=== PATIENT | male | born 1955 | race Caucasian/White ===

== ENCOUNTER 2019-07-26 13:40 | Emergency (ER) | payer BC ==
--- NOTE | 2019-07-26 14:44 | RAD REPORT ---
EXAM DESCRIPTION: RAD - Foot Right 3 View - 07/26/2019 2:36 pm CLINICAL HISTORY: r/o fb Pain and swelling COMPARISON: No comparisons FINDINGS: Soft tissue swelling is seen along the medial aspect of the foot. No fracture or radiopaqu e foreign body seen.
--- NOTE | 2019-07-26 14:46 | ER ---
Nurse's Notes [facility] Name: Baldomero Perez Age: 63 yrs Sex: Male : 1955 Arrival Date: 07/26/2019 Time: 13:45 Bed 11 Private MD: Diagnosis: Puncture wound without foreign body of foot Presentation: 07/26 14:12 Presenting complaint: Patient states: steppe on a nail yesterday evening, right foot. iw Transition of care: patient was not received from another setting of care. Onset of symptoms was July 25, 2019. Risk Assessment: Do you want to hurt yourself or someone else? Patient reports no desire to harm self or others. Initial Sepsis Screen: Does the patient meet any 2 criteria? No. Patient's initial sepsis screen is negative. Does the patient have a suspected source of infection? No. Patient's initial sepsis screen is negative. Care prior to arrival: None. 14:12 Method Of Arrival: Wheelchair iw 14:12 Acuity: MARISOL 4 iw Triage Assessment: 15:00 General: Appears Behavior is calm. iw Historical: - Allergies: 14:16 Codeine; iw - Home Meds: 14:16 Metformin Oral [Active]; Lactulose Oral [Active]; rifaximin oral oral [Active]; [place] iw Thyroid 60 mg Oral tab 60 mg after meals and before bedtime for Hypothyroidism [Active]; - PMHx: 14:16 Hypothyroidism; Diabetes - NIDDM; liver issues; iw - PSHx: 14:16 left shoulder; iw - Immunization history:: Adult Immunizations unknown. - Social history:: Smoking status: Patient/guardian denies using tobacco. - Ebola Screening: : Patient negative for fever greater than or equal to 101.5 degrees Fahrenheit, and additional compatible Ebola Virus Disease symptoms Patient denies exposure to infectious person Patient denies travel to an Ebola-affected area in the 21 days before illness onset No symptoms or risks identified at this time. Screenin:15 Abuse screen: Denies threats or abuse. Denies injuries from another. Nutritional iw screening: No deficits noted. Tuberculosis screening: No symptoms or risk factors identified. Fall Risk None identified. Assessment: 14:50 General: Appears in no apparent distress. Behavior is calm, cooperative. Pain: iw Complains of pain in right foot and heel of right foot. Neuro: Level of Consciousness is awake, alert, obeys commands. Cardiovascular: Patient's skin is warm and dry. Respiratory: Airway Respiratory effort is even, unlabored. Derm: Skin is intact, is healthy with good turgor. Musculoskeletal: Range of motion: intact in all extremities. Vital Signs: 14:16 Pulse 84; Resp 16; Temp 98.2; Pulse Ox 100% ; Weight 78.93 kg; Height 5 ft. 10 in. iw (177.80 cm); Pain 8/10; 14:16 Body Mass Index 24.97 (78.93 kg, 177.80 cm) iw ED Course: 13:45 Patient arrived in ED. rg4 14:08 Mariah Vaughn F[facility]-C is [facility]. kb 14:08 Apollo Lindquist MD is Attending Physician. kb 14:11 Clarita Carolina, RN is Primary Nurse. dm5 14:14 Triage completed. iw 14:17 Primary Nurse role handed off by Clarita Carolina, JADEN iw 14:17 Tiffany Cevallos RN is Primary Nurse. iw 14:17 Arm band placed on. iw 14:36 Foot Right 3 View XRAY In Process Unspecified. EDMS 14:50 Patient has correct armband on for positive identification. iw 15:19 No provider procedures requiring assistance completed. Patient did not have IV access iw during this emergency room visit. Administered Medications: 15:05 Drug: Tetanus-Diphtheria Toxoid Adult 0.5 ml {A P Manager: [employer]. Exp: iw 07/19/2020. Lot #: [id number]. } Route: IM; Site: right deltoid; 15:10 Drug: KeFLEX 500 mg Route: PO; iw Outcome: 14:45 Discharge ordered by . kb 15:19 Discharged to home ambulatory. iw 15:19 Condition: good 15:19 Discharge instructions given to patient, Instructed on discharge instructions, follow up and referral plans. Demonstrated understanding of instructions, follow-up care, medications, Prescriptions given X 1. 15:20 Patient left the ED. iw Signatures: Dispatcher [employer] EDMS Mariah Vaughn FNP-C FNP-Clarita Campuzano RN RN dm5 Tiffany Cevallos RN RN Lubna Rosario rg4
--- NOTE | 2019-07-26 14:47 | EDPHYS ---
Physician Documentation [facility] Name: Baldomero Perez Age: 63 yrs Sex: Male : 1955 Arrival Date: 07/26/2019 Time: 13:45 Bed 11 Private MD: ED Physician Apollo Lindquist HPI: 07/26 14:45 This 63 yrs old Male presents to ER via Wheelchair with complaints of kb Puncture Wound To Foot. 14:42 The patient presents with a puncture wound, from a nail. The complaints affect the kb right foot. Context: The problem was sustained outdoors, resulted from the patient stepping on a nail, the patient can fully bear weight, the patient is able to ambulate. Onset: The symptoms/episode began/occurred yesterday. Modifying factors: The symptoms are alleviated by nothing, the symptoms are aggravated by nothing. Associated signs and symptoms: The patient has no apparent associated signs or symptoms. Severity of symptoms: At their worst the symptoms were mild, in the emergency department the symptoms are unchanged. The patient has not experienced similar symptoms in the past. The patient has not recently seen a physician. Pt stepped on nail yesterday. Pt is diabetic and also needs tetanus shot. Historical: - Allergies: 14:16 Codeine; iw - Home Meds: 14:16 Metformin Oral [Active]; Lactulose Oral [Active]; rifaximin oral oral [Active]; [place] iw Thyroid 60 mg Oral tab 60 mg after meals and before bedtime for Hypothyroidism [Active]; - PMHx: 14:16 Hypothyroidism; Diabetes - NIDDM; liver issues; iw - PSHx: 14:16 left shoulder; iw - Immunization history:: Adult Immunizations unknown. - Social history:: Smoking status: Patient/guardian denies using tobacco. - Ebola Screening: : Patient negative for fever greater than or equal to 101.5 degrees Fahrenheit, and additional compatible Ebola Virus Disease symptoms Patient denies exposure to infectious person Patient denies travel to an Ebola-affected area in the 21 days before illness onset No symptoms or risks identified at this time. ROS: 14:42 MS/extremity: Positive for kb 14:42 Constitutional: Negative for fever, chills, and weight loss, Neck: Negative for injury, pain, and swelling, Cardiovascular: Negative for chest pain, palpitations, and edema, Respiratory: Negative for shortness of breath, cough, wheezing, and pleuritic chest pain, Abdomen/GI: Negative for abdominal pain, nausea, vomiting, diarrhea, and constipation, Back: Negative for injury and pain, MS/Extremity: Negative for injury and deformity, Neuro: Negative for headache, weakness, numbness, tingling, and seizure. 14:42 Skin: Positive for puncture, of the heel of right foot. Exam: 14:41 Constitutional: This is a well developed, well nourished patient who is awake, alert, kb and in no acute distress. Head/Face: Normocephalic, atraumatic. Chest/axilla: Normal chest wall appearance and motion. Nontender with no deformity. No lesions are appreciated. Cardiovascular: Regular rate and rhythm with a normal S1 and S2. No gallops, murmurs, or rubs. Normal PMI, no JVD. No pulse deficits. Respiratory: Lungs have equal breath sounds bilaterally, clear to auscultation and percussion. No rales, rhonchi or wheezes noted. No increased work of breathing, no retractions or nasal flaring. Abdomen/GI: Soft, non-tender, with normal bowel sounds. No distension or tympany. No guarding or rebound. No evidence of tenderness throughout. MS/ Extremity: Pulses equal, no cyanosis. Neurovascular intact. Full, normal range of motion. Neuro: Awake and alert, GCS 15, oriented to person, place, time, and situation. Cranial nerves II-XII grossly intact. Motor strength 5/5 in all extremities. Sensory grossly intact. Cerebellar exam normal. Normal gait. 14:41 Skin: injury, puncture(s), that are superficial, of the heel of right foot. Vital Signs: 14:16 Pulse 84; Resp 16; Temp 98.2; Pulse Ox 100% ; Weight 78.93 kg; Height 5 ft. 10 in. iw (177.80 cm); Pain 8/10; 14:16 Body Mass Index 24.97 (78.93 kg, 177.80 cm) iw MDM: 14:08 Patient medically screened. kb 14:41 Data reviewed: vital signs, nurses notes. Data interpreted: Pulse oximetry: on room air kb is 100 %. Interpretation: normal. 14:43 Counseling: I had a detailed discussion with the patient and/or guardian regarding: the kb historical points, exam findings, and any diagnostic results supporting the discharge/admit diagnosis, radiology results, the need for outpatient follow up, a family practitioner, to return to the emergency department if symptoms worsen or persist or if there are any questions or concerns that arise at home. 07/26 14:10 Order name: Foot Right 3 View XRAY; Complete Time: 14:50 kb Administered Medications: 15:05 Drug: Tetanus-Diphtheria Toxoid Adult 0.5 ml {Chemical Unit Operator: [employer]. Exp: iw 07/19/2020. Lot #: [id number]. } Route: IM; Site: right deltoid; 15:10 Drug: KeFLEX 500 mg Route: PO; iw Disposition: 19:05 Co-signature as Attending Physician, Apollo Lindquist MD. rn Disposition: 07/26/19 14:45 Discharged to Home. Impression: Puncture wound without foreign body of foot. - Condition is Stable. - Discharge Instructions: Puncture Wound, [id number]. - Prescriptions for Keflex 500 mg Oral Capsule - take 1 capsule by ORAL route every 8 hours for 10 days; 30 capsule. - Medication Reconciliation Form, Thank You Letter, Antibiotic Education, Prescription Opioid Use form. - Follow up: Emergency Department; When: As needed; Reason: Worsening of condition. Follow up: Private Physician; When: 2 - 3 days; Reason: Recheck today's complaints, Continuance of care, Re-evaluation by your physician. Signatures: Dispatcher [employer] [facility] Mariah Vaughn, CASTING MOLDER-C CASTING MOLDER-Tiffany Medina RN RN iw Nieto, Roman, MD MD internal control specialist: (The following items were deleted from the chart) 15:20 14:45 07/26/2019 14:45 Discharged to Home. Impression: Puncture wound without foreign iw body of foot. Condition is Stable. Discharge Instructions: Puncture Wound, [id number]. Prescriptions for Keflex 500 mg Oral Capsule - take 1 capsule by ORAL route every 8 hours for 10 days; 30 capsule. and Forms are Medication Reconciliation Form, Thank You Letter, Antibiotic Education, Prescription Opioid Use. Follow up: Emergency Department; When: As needed; Reason: Worsening of condition. Follow up: Private Physician; When: 2 - 3 days; Reason: Recheck today's complaints, Continuance of care, Re-evaluation by your physician. kb
[2019-07-26] MEDS ORDERED: CEPHALEXIN 250 MG CAP ONE (15:07)
[2019-07-26] MEDS ORDERED: TETANUS & DIPHTHERIA TOX,ADULT 0.5 ML VIAL ONE (15:10)
[2019-07-26 16:15] VITALS: TEMP 98.2; O2SAT 100
== END 2019-07-26 15:20 | disposition home or self-care (01) ==
LOC: ER 13:40
DX: S91.331A Puncture wound without foreign body, right foot, initial encounter (principal); W45.0XXA Nail entering through skin, initial encounter; Y93.01 Activity, walking, marching and hiking; Y92.89 Other specified places as the place of occurrence of the external cause; Z23 Encounter for immunization; Z88.5 Allergy status to narcotic agent; E03.9 Hypothyroidism, unspecified; E11.9 Type 2 diabetes mellitus without complications
CPT/HCPCS: 90471; 90714; 99283

== ENCOUNTER 2021-10-25 21:22 | Observation (INO) | payer BC ==
[2021-10-25] MEDS ORDERED: NA CHLORIDE 0.9% 2,000 ML ONE (22:02)
[2021-10-25] MEDS ORDERED: IBUPROFEN 200 MG TAB PO ONE (22:02)
[2021-10-25 22:21] LABS: Absolute Lymphocytes (CBC) 0.3 K/uL (0.7-4.9); Hematocrit 40.4 % (39.6-49.0); Lymphocytes % 17.6 % (15.3-44.8); MPV 9.4 fL (7.6-11.3); RBC Red Blood Cell Count 3.96 M/uL (4.33-5.43)
[2021-10-25 22:22] LABS: Protime INR 1.27
[2021-10-25 22:34] LABS: ALT/SGPT 69 U/L (12-78); AST/SGOT 72 U/L (15-37); Albumin 3.3 g/dL (3.4-5.0); Alkaline Phosphatase 100 U/L (45-117); BUN Blood Urea Nitrogen 10 mg/dL (7-18); Bicarbonate 24 mmol/L (21-32); Bilirubin Direct 0.6 mg/dL (0-0.2); Bilirubin Total 1.8 mg/dL (0.2-1.0); Glucose Level 231 mg/dL (74-106); Magnesium 1.8 mg/dL (1.8-2.4); NT PRO-BNP 45 pg/mL (<125); Protein, Total 6.3 g/dL (6.4-8.2); Sodium Level 138 mmol/L (136-145); Troponin High Sensitivity 15.7 pg/mL (<58.9)
[2021-10-25 22:40] LABS: Urine Blood Negative (Negative); Urine Glucose 3+ (Negative); Urine Protein 1+ (Negative); Urine Specific Gravity 1.025 (1.005-1.030); Urine pH 6.5 (5.0-7.0)
[2021-10-25] MEDS ORDERED: CEFEPIME 1 GM/VIAL ONE (22:48)
[2021-10-25] MEDS ORDERED: NA CHLORIDE 0.9% 100 ML IV ONE (22:48)
[2021-10-25 23:33] LABS: SARS-COV-2 RT PCR NEGATIVE (NEGATIVE)
[2021-10-25 23:46] LABS: Urine Mucus 1+ /HPF (NONE SEEN)
[2021-10-25 23:47] LABS: Urine Bacteria <20 /HPF (NONE SEEN); Urine RBC <5 /HPF (NONE SEEN); Urine Urothelial Cells <5 /HPF (NONE SEEN)
[2021-10-26] MEDS ORDERED: OSELTAMIVIR 75 MG CAP ONE (00:16)
--- NOTE | 2021-10-26 00:17 | ER ---
Nurse's Notes [facility] Name: Baldomero Perez Age: 66 yrs Sex: Male : 1955 Arrival Date: 10/25/2021 Time: : Bed 20 Private MD: Diagnosis: Fever, unspecified;Influenza due to identified novel influenza A virus;[place] Presentation: 10/25 21:38 Chief complaint: Patient states: "Yesterday, I started I had a headache, I was ab2 coughing, I thought it was my allergies. It has been persistent and tonight I developed a fever." Pt c/o body aches, cough and fever. Chief complaint:. Coronavirus screen: Vaccine status: Patient reports receiving the 2nd dose of the covid vaccine. Client denies travel out of the [place] in the last 14 days. chills, congestion, cough unrelated to allergies, fatigue, fever, muscle pain, Client presents with at least one sign or symptom that may indicate coronavirus-19. Standard/surgical mask placed on the client. Provider contacted for isolation considerations. Ebola Screen: Patient negative for fever greater than or equal to 101.5 degrees Fahrenheit, and additional compatible Ebola Virus Disease symptoms Patient denies exposure to infectious person. Patient denies travel to an Ebola-affected area in the 21 days before illness onset. No symptoms or risks identified at this time. Initial Sepsis Screen: Does the patient meet any 2 criteria? Temp <36.0*C (96.8*F)) or > 38.3*C (100.9*F). HR > 90 bpm. Yes Does the patient have a suspected source of infection? No. Patient's initial sepsis screen is negative. Risk Assessment: Do you want to hurt yourself or someone else? Patient reports no desire to harm self or others. Onset of symptoms is unknown. 21:38 Method Of Arrival: Ambulatory ab2 21:38 Acuity: MARISOL 3 ab2 Triage Assessment: 21:43 Headache History: Denies prior headaches. General: Appears in no apparent distress. ab2 uncomfortable, Behavior is calm, cooperative, appropriate for age. Pain: Complains of pain in generalized body aches Pain currently is 6 out of 10 on a pain scale. Quality of pain is described as aching, Pain began 1 day ago. Pain: Also complains of no other associated symptoms. Neuro: Level of Consciousness is awake, alert, obeys commands, Oriented to person, place, time, situation, Appropriate for age Reports headache. Respiratory: Reports cough that is Airway is patent Respiratory effort is even, unlabored, Respiratory pattern is regular, symmetrical. Historical: - Allergies: 21:41 No Known Allergies; ab2 - Home Meds: 22:18 [place] Thyroid 60 mg Oral tab 60 mg after meals and before bedtime for Hypothyroidism kd3 [Active]; Metformin Oral [Active]; rifaximin Oral [Active]; - PMHx: 21:41 Diabetes - NIDDM; Hypothyroidism; Liver Issues; ab2 - Immunization history:: Adult Immunizations up to date. - Social history:: Smoking status: Patient denies any tobacco usage or history of. Screenin:18 Abuse screen: Denies threats or abuse. Denies injuries from another. Nutritional kd3 screening: No deficits noted. Tuberculosis screening: No symptoms or risk factors identified. Fall Risk IV access (20 points). Assessment: 22:17 General: Appears in no apparent distress. ill, Behavior is calm, cooperative, kd3 appropriate for age. Pain: Denies pain. Neuro: Level of Consciousness is awake, alert, Oriented to person, place, time, situation. Cardiovascular: Patient's skin is warm and dry. Vital Signs: 21:38 BP 140 / 76; Pulse 105; Resp 20; Temp 101.6; Pulse Ox 95% on R/A; Weight 78.47 kg; ab2 Height 5 ft. 11 in. (180.34 cm); Pain 6/10; 23:03 BP 117 / 71; Pulse 85; Resp 16; Temp 99.4(O); Pulse Ox 95% ; kd3 21:38 Body Mass Index 24.13 (78.47 kg, 180.34 cm) ab2 ED Course: 21:27 Patient arrived in ED. ja2 21:41 Triage completed. ab2 21:44 Arm band placed on left wrist. ab2 21:45 Edwardo Renteria PA is PHCP. cp 21:45 Juan Carlos Burt MD is Attending Physician. cp 22:06 Monica Stallings, JADEN is Primary Nurse. kd3 22:07 Blood Culture Adult (2) Sent. kd3 22:07 Procalcitonin Sent. kd3 22:07 Lactate Sent. kd3 22:19 Bed in low position. Call light in reach. Side rails up X 1. kd3 22:22 XRAY Chest (1 view) In Process Unspecified. EDMS 23:08 CT Chest, Abdomen, Pelvis - W/Contrast In Process Unspecified. EDMS 10/26 00:16 Anitra Damon PA is Hospitalizing Provider. cp 00:30 Felipe Vasquez is Hospitalizing Provider. cp 01:32 No provider procedures requiring assistance completed. Patient admitted, IV remains in kd3 place. Administered Medications: 10/25 22:01 Drug: NS 0.9% (30 ml/kg) 30 ml/kg Route: IV; Rate: bolus; Site: left antecubital; ab2 22:02 Drug: Ibuprofen 800 mg Route: PO; ab2 22:19 Drug: NS 0.9% (30 ml/kg) 30 ml/kg Route: IV; Rate: bolus; Site: left antecubital; kd3 22:59 Drug: Cefepime 2 grams Route: IVPB; Rate: 200 ml/hr; Infused Over: 30 mins; Site: left kd3 antecubital; 10/26 00:15 Drug: Tamiflu (oseltamivir) 75 mg Route: PO; kd3 Outcome: 00:16 Decision to Hospitalize by Provider. cp 01:32 Admitted to Med/surg accompanied by viktor ibarra . kd3 01:33 Condition: stable kd3 02:06 Patient left the ED. kd3 Signatures: Dispatcher [employer] EDOK Edwardo Renteria PA PA cp Alexander, Jessica ja2 Doucette, Kyli, RN RN kd3 Nikolas Knowles2 Corrections: (The following items were deleted from the chart) 10/25 21:43 21:41 Allergies: Codeine; ab2 ab2
--- NOTE | 2021-10-26 00:18 | EDPHYS ---
Physician Documentation [facility] Name: Baldomero Perez Age: 66 yrs Sex: Male : 1955 Arrival Date: 10/25/2021 Time: 21:27 Bed 20 Private MD: ED Physician Juan Carlos Burt HPI: 10/25 22:00 This 66 yrs old Male presents to ER via Ambulatory with complaints of Fever, Headache, cp ACHES ALL OVER. 22:00 The patient reports fever, with an emergency department temperature of 101.6 degrees cp Fahrenheit. Onset: The symptoms/episode began/occurred today. Associated signs and symptoms: Pertinent positives: cough, headache, body aches, Pertinent negatives: abdominal pain, altered mental status, chest pain, diarrhea, vomiting. Severity of symptoms: in the emergency department the symptoms are unchanged despite home interventions. Historical: - Allergies: 21:41 No Known Allergies; ab2 - Home Meds: 22:18 [place] Thyroid 60 mg Oral tab 60 mg after meals and before bedtime for Hypothyroidism kd3 [Active]; Metformin Oral [Active]; rifaximin Oral [Active]; - PMHx: 21:41 Diabetes - NIDDM; Hypothyroidism; Liver Issues; ab2 - Immunization history:: Adult Immunizations up to date. - Social history:: Smoking status: Patient denies any tobacco usage or history of. ROS: 22:05 Constitutional: Positive for body aches, fever. cp 22:05 Eyes: Negative for injury, pain, redness, and discharge. cp 22:05 ENT: Negative for drainage from ear(s), ear pain, sore throat, difficulty swallowing, difficulty handling secretions. 22:05 Cardiovascular: Negative for chest pain, edema, palpitations. 22:05 Respiratory: Positive for cough, with no reported sputum, Negative for shortness of breath, wheezing. 22:05 Abdomen/GI: Negative for abdominal pain, vomiting, diarrhea, constipation. 22:05 : Negative for urinary symptoms, flank pain. 22:05 Skin: Negative for rash. 22:05 Neuro: Positive for headache, Negative for altered mental status, numbness, weakness. 22:05 All other systems are negative. Exam: 22:10 Constitutional: The patient appears in no acute distress, alert, awake, cp non-diaphoretic, non-toxic, well developed, well nourished, febrile. 22:10 Head/Face: Normocephalic, atraumatic. cp 22:10 Eyes: Periorbital structures: appear normal, Pupils: equal, round, and reactive to light and accomodation, Extraocular movements: intact throughout, Conjunctiva: normal, no exudate, no injection, Sclera: no appreciated abnormality, Lids and lashes: appear normal, bilaterally. 22:10 ENT: External ear(s): are unremarkable, Ear canal(s): are normal, clear, TM's: dullness, bilaterally, Nose: is normal, Mouth: Lips: dry, Oral mucosa: moist, Posterior pharynx: Airway: no evidence of obstruction, patent, Tonsils: are normal in appearance, swelling, is not appreciated, erythema, that is mild, exudate, is not appreciated. 22:10 Neck: ROM/movement: is normal, is supple, without pain, no range of motions limitations, no meningismus. 22:10 Chest/axilla: Inspection: normal, Palpation: is normal, no crepitus, no tenderness. 22:10 Cardiovascular: Rate: tachycardic, Rhythm: regular, Edema: is not appreciated, JVD: is not appreciated. 22:10 Respiratory: the patient does not display signs of respiratory distress, Respirations: normal, no use of accessory muscles, no retractions, labored breathing, is not present, Breath sounds: bronchial sounds, that are mild, are heard diffusely, decreased breath sounds, are not appreciated, stridor, is not appreciated, wheezing: is not appreciated. 22:10 Abdomen/GI: Inspection: abdomen appears normal, Bowel sounds: active, all quadrants, Palpation: abdomen is soft and non-tender, in all quadrants. 22:10 Back: pain, is absent, ROM is normal. 22:10 Skin: cellulitis, is not appreciated, no rash present. 22:10 Neuro: Orientation: to person, place \T\ time. Mentation: is normal, Motor: moves all fours, strength is normal, Sensation: is normal. 22:15 ECG was reviewed by the Attending Physician. cp Vital Signs: 21:38 BP 140 / 76; Pulse 105; Resp 20; Temp 101.6; Pulse Ox 95% on R/A; Weight 78.47 kg; ab2 Height 5 ft. 11 in. (180.34 cm); Pain 6/10; 23:03 BP 117 / 71; Pulse 85; Resp 16; Temp 99.4(O); Pulse Ox 95% ; kd3 21:38 Body Mass Index 24.13 (78.47 kg, 180.34 cm) ab2 MDM: 21:56 Patient medically screened. cp 22:00 Differential diagnosis: viral Infection, bacterial infection, bronchitis, pneumonia cp gastroenteritis, meningitis, influenza, UTI, sepsis. 23:45 Post IV fluid administration reassessment for Sepsis: Client prescribed 30 mL/kg IVF. cp Focused Assessment performed: October 25, 2021 at 23:45 Heart: Regular rate/rhythm noted. Lungs: mild bronchial sounds noted throughout Skin examination performed. Skin noted to have normal turgor. Current vital signs reviewed: Yes. Neuro: no change Cardio: Cardiovascular examination improved from previous exam. Heart rate and blood pressure have improved. Respiratory: no signs of respiratory distress. 23:45 Data reviewed: vital signs, nurses notes, lab test result(s), EKG, radiologic studies, cp plain films. 10/26 00:10 Physician consultation: Anitra CRANE was called at 00:05, was contacted at 00:05, cp regarding admission, to the telemetry unit. patient's condition, and will see patient in ED, shortly. 10/25 21:56 Order name: Basic Metabolic Panel; Complete Time: 22:36 cp 10/25 22:36 Interpretation: Normal except: GLUC 231. cp 10/25 21:56 Order name: CBC with Diff; Complete Time: 00:45 cp 10/25 22:46 Interpretation: Normal except: WBC 1.7; RBC 3.96; MCV 102.1; MCH 35.7; PLT 74; MN% cp 22.1; NEUT A 1.0; LYMA 0.3. 10/25 21:56 Order name: LFT's; Complete Time: 22:36 cp 10/25 23:40 Interpretation: Normal except: AST 72; BILIT 1.8; BILID 0.6; TP 6.3; ALB 3.3. cp 10/25 21:56 Order name: Magnesium; Complete Time: 22:36 cp 10/25 21:56 Order name: NT PRO-BNP; Complete Time: 22:36 cp 10/25 21:56 Order name: PT-INR; Complete Time: 22:36 10/25 21:56 Order name: Troponin HS; Complete Time: 22:36 10/25 21:56 Order name: Procalcitonin; Complete Time: 23:39 10/25 21:56 Order name: Lactate; Complete Time: 22:36 10/25 21:56 Order name: Blood Culture Adult (2) 10/25 21:56 Order name: Urine Microscopic Only; Complete Time: 23:39 10/25 23:39 Interpretation: INFLUENZA A POSITIVE; Reviewed. 10/25 21:58 Order name: Urine Microscopic Only; Complete Time: 00:02 EDMS 10/25 22:39 Order name: Manual Differential; Complete Time: 00:45 EDMS 10/26 00:45 Interpretation: Abnormal: BANDS [F] 6. 10/25 21:56 Order name: XRAY Chest (1 view) 10/25 21:56 Order name: EKG; Complete Time: 21:57 10/25 21:56 Order name: Cardiac monitoring; Complete Time: 22:12 10/25 21:56 Order name: EKG - Nurse/Tech; Complete Time: 22:12 10/25 21:56 Order name: IV Saline Lock; Complete Time: 22:07 10/25 21:56 Order name: Labs collected and sent; Complete Time: 22:07 10/25 21:56 Order name: O2 Per Protocol; Complete Time: 22:12 10/25 21:56 Order name: O2 Sat Monitoring; Complete Time: 22:12 10/25 21:56 Order name: Urine Dipstick-Ancillary (obtain specimen); Complete Time: 22:43 10/25 22:38 Order name: CT Chest, Abdomen, Pelvis - W/Contrast 10/25 22:40 Order name: Urine Dipstick-Ancillary; Complete Time: 22:46 EDIN 10/25 22:47 Interpretation: Normal except: UGLUC 3+; UKET Trace; UPROT 1+. cp EC/27 22:15 Rate is 93 beats/min. Rhythm is regular. UT interval is normal. QRS interval is normal. cp QT interval is normal. T waves are Inverted in lead aVR. Interpreted by me. Reviewed by me. Administered Medications: 22:01 Drug: NS 0.9% (30 ml/kg) 30 ml/kg Route: IV; Rate: bolus; Site: left antecubital; ab2 22:02 Drug: Ibuprofen 800 mg Route: PO; ab2 22:19 Drug: NS 0.9% (30 ml/kg) 30 ml/kg Route: IV; Rate: bolus; Site: left antecubital; kd3 22:59 Drug: Cefepime 2 grams Route: IVPB; Rate: 200 ml/hr; Infused Over: 30 mins; Site: left kd3 antecubital; 10/26 00:15 Drug: Tamiflu (oseltamivir) 75 mg Route: PO; kd3 Disposition: 04:45 Co-signature as Attending Physician, Juan Carlos Burt MD. [facility] Disposition Summary: 10/26/21 00:16 Hospitalization Ordered Hospitalization Status: Inpatient Admission cp Location: Telemetry/[facility] (Inpatient) cp Condition: Stable cp Problem: new cp Symptoms: have improved cp Bed/Room Type: Standard cp Provider: Feilpe Vasquez(10/26/21 00:30) cp Room Assignment: [facility](10/26/21 00:44) Diagnosis - Fever, unspecified cp - Influenza due to identified novel influenza A virus cp - Bandemia cp Forms: - Medication Reconciliation Form cp - SBAR form cp Signatures: Dispatcher [employer] EDRegina Paz RN RN Edwardo Renteria PA PA cp Juan Carlos Burt MD MD [facility] Monica Stallings RN RN kd3 Nikolas Knowels ab2 Corrections: (The following items were deleted from the chart) 10/25 21:43 21:41 Allergies: Codeine; ab2 ab2 22:42 22:38 Beth ordered. cp kd3 10/26 00:30 00:16 Anitra Damon cp cp 00:34 00:29 COVID-19/FLU A+B+MOL.LAB.BRZ ordered. EDMS EDMS 00:44 00:16 cp mw
[2021-10-26 00:26] LABS: Blood Morphology Comment NOT SEEN (NOT SEEN); Platelet Estimate DECR
--- NOTE | 2021-10-26 00:40 | P.HP ---
Certification for Inpatient Patient admitted to: Observation With expected LOS: <2 Midnights Patient will require the following post-hospital care: None Practitioner: I am a practitioner with admitting privileges, knowledge of patient current condition, hospital course, and medical plan of care. Services: Services provided to patient in accordance with Admission requirements found in Title 42 Section 412.3 of the Code of Federal Regulations Patient History Date of Service: 10/26/21 Reason for admission: Influenza History of Present Illness: Patient is a 66-year-old male with cirrhosis status post TIPS procedure, hypothyroidism, type 2 diabetes [id number] who presented to the ED with a 2-day history of body aches, fever, chills, cough, headache. He initially flagged sepsis protocol with BP 140/76, heart rate 105, temp 101.6 Fahrenheit, 95% O2 saturation. Labs significant for white blood cell 1.7, PT 14, 6 band neutrophils, influenza A positive. CT chest abdomen pelvis negative. In the ED he was given sepsis fluids, 800 mg of ibuprofen, cefepime, tamiflu. Upon my assessment, patient reports he is feeling much better. His vital signs have stabilized. Will admit patient for observation. Allergies codeine Adverse Reaction (Verified 11/11/15 11:56) Nausea/Vomiting hydrocodone Adverse Reaction (Verified 11/11/15 17:20) Nausea/Vomiting octreotide [From Sandostatin] Adverse Reaction (Verified 11/12/15 19:52) Hives/Rash ondansetron [From Zofran (as hydrochloride)] Adverse Reaction (Verified 11/12/15 19:52) Hives/Rash Home medications list reviewed: Yes Home Medications: Thyroid,Pork [[place] Thyroid] 60 mg PO DAILY 11/11/15 Zolpidem Tartrate [Ambien] 5 mg PO PRN 11/11/15 - Past Medical/Surgical History Diabetic: Yes -: Hep C -: Thyroid Disorder -: Type 2 Diabetes- Non Insulin Dependent -: Cirrhosis -: TIPS Psychosocial/ Personal History: Patient lives at home with his . - Family History Father -: Heart disease, Diabetes Mother -: Heart disease, Hypertension - Social History Smoking Status: Never smoker Alcohol use: No CD- Drugs: No Caffeine use: Yes Place of Residence: Home Review of Systems General: Fever, Chills, Weakness, Malaise, As per HPI Respiratory: Cough, Shortness of Breath Physical Examination - Physical Exam General: Alert, In no apparent distress, Oriented x3 HEENT: Atraumatic, PERRLA, Mucous membr. moist/pink, EOMI, Sclerae nonicteric Neck: Supple, 2+ carotid pulse no bruit, No LAD, Without JVD or thyroid abnormality Respiratory: Clear to auscultation bilaterally, Normal air movement Cardiovascular: Regular rate/rhythm, Normal S1 S2 Gastrointestinal: Normal bowel sounds, No tenderness Musculoskeletal: No tenderness Integumentary: No rashes Neurological: Normal speech, Normal strength at 5/5 x4 extr, Normal tone, Normal affect - Studies Laboratory Data (last 24 hrs) 10/25/21 22:02: PT 14.0 H, INR 1.27 10/25/21 22:02: WBC 1.7 L*, Hgb 14.1, Hct 40.4, Plt Count 74 L 10/25/21 22:02: Sodium 138, Potassium 4.0, BUN 10, Creatinine 0.70, Glucose 231 H, Magnesium 1.8, Total Bilirubin 1.8 H, AST 72 H, ALT 69, Alkaline Phosphatase 100 Assessment and Plan - Problems (Diagnosis) (1) Influenza Current Visit: Yes Status: Acute (2) Fever Current Visit: Yes Status: Acute Qualifiers: Fever type: due to other condition Qualified Code(s): R50.81 - Fever presenting with conditions classified elsewhere (3) Neutropenia Current Visit: Yes Status: Acute Qualifiers: Neutropenia type: due to infection Qualified Code(s): D70.3 - Neutropenia due to infection (4) Hepatic cirrhosis due to chronic hepatitis C infection Current Visit: No Status: Chronic (5) Hypothyroidism Current Visit: Yes Status: Chronic Qualifiers: Hypothyroidism type: acquired Qualified Code(s): E03.9 - Hypothyroidism, unspecified (6) Non-insulin dependent type 2 diabetes mellitus Current Visit: Yes Status: Chronic - Plan -Patient is positive for influenza A. his white blood cell count is decreased at 1.7. Will trend. -Sepsis protocol was initially called. Lactic acid and pro-Aditya within normal limits. Vital signs stabilized. will continue to monitor -Sepsis fluids given in the ED, will continue IV hydration at 100 cc an hour. -Patient reported mild shortness of breath and cough. Breathing treatments and Tessalon Perles ordered as needed -Patient has a history of liver disease. Ibuprofen as needed pain/fever -Patient received cefepime in the ED. Will hold off on any further antibiotics. Continue Tamiflu -Continue home medications DVT PPx: Lovenox Code: Full Discharge Plan: Home Plan to discharge in: 24 Hours - Advance Directives Does patient have a Living Will: No Does patient have a Durable POA for Healthcare: No - Code Status/Comfort Care Code Status Assessed: Yes (Full) Critical Care: No Time Spent Managing Pts Care (In Minutes): 70
[2021-10-26] MEDS ORDERED: PROMETHAZINE INJ 25 MG/ML AMP IV PRN (01:44)
[2021-10-26] MEDS ORDERED: ALBUTEROL 2.5 MG/3 ML NEB SOL NEB PRN ×2 (01:44→12:00)
[2021-10-26] MEDS ORDERED: ZOLPIDEM TARTRATE 5 MG TABLET PO PRN (01:44)
[2021-10-26] MEDS ORDERED: BENZONATATE 100 MG CAP PO PRN (01:44)
[2021-10-26] MEDS ORDERED: IBUPROFEN 400 MG TAB PO PRN (01:44)
[2021-10-26 02:22] VITALS: BMI 22.7
[2021-10-26] MEDS: NA CHLORIDE 0.9% 1,000 ML IV SCH ×3 (02:42→16:53)
[2021-10-26 04:28] LABS: Absolute Lymphocytes (CBC) 0.5 K/uL (0.7-4.9); Hematocrit 37.2 % (39.6-49.0); Lymphocytes % 35.7 % (15.3-44.8); MPV 9.7 fL (7.6-11.3); RBC Red Blood Cell Count 3.56 M/uL (4.33-5.43)
[2021-10-26 04:34] LABS: ALT/SGPT 64 U/L (12-78); AST/SGOT 59 U/L (15-37); Albumin 2.9 g/dL (3.4-5.0); Alkaline Phosphatase 88 U/L (45-117); BUN Blood Urea Nitrogen 12 mg/dL (7-18); Bicarbonate 22 mmol/L (21-32); Bilirubin Total 1.5 mg/dL (0.2-1.0); Glucose Level 311 mg/dL (74-106); Magnesium 1.8 mg/dL (1.8-2.4); Phosphorus 3.9 mg/dL (2.5-4.9); Potassium 3.8 mmol/L (3.5-5.1); Protein, Total 5.5 g/dL (6.4-8.2); Sodium Level 138 mmol/L (136-145); Thyroid Stimulating Hormone 0.064 uIU/mL (0.360-3.740)
[2021-10-26] MEDS ORDERED: PNEUMOCOCCAL VACCINE 0.5 ML IMVAC ONE (08:00)
[2021-10-26] MEDS: INSULIN -REGULAR HUMAN 50 UNIT/0.5 ML ML SQ SCH ×4 (08:58→21:00)
[2021-10-26] MEDS: OSELTAMIVIR 75 MG CAP PO SCH ×2 (08:58→21:00)
[2021-10-26] MEDS ORDERED: ENOXAPARIN 40 MG/0.4 ML SQ SCH (09:00)
--- NOTE | 2021-10-26 12:54 | RAD REPORT ---
EXAM DESCRIPTION: CT - Chest Abdomen Pelvis W Cont - 10/26/2021 2:35 am CLINICAL HISTORY: 66-year-old male with fever. COMPARISON: None. TECHNIQUE: CT of the chest, abdomen and pelvis was performed following intravenous administration of contrast. Oral contrast was not administered. Multiplanar reformatted images were provided. This exa m was performed according to our departmental dose optimization program which includes use of automat ed exposure control, adjustment of the mA and/or kV according to patient size and/or use of iterative reconstruction technique. FINDINGS: Chest: Evaluation through the lung bases reveals no focal opacity, pleural effusion or pne umothorax. Heart size is within normal limits. No pericardial effusion. Air-fluid level present withi n a patulous esophagus may be secondary to esophageal dysmotility or reflux. Abdomen and pelvis: The gallbladder, pancreas, spleen, bilateral kidneys and bilateral adrenal glands are within normal limits. Intrahepatic TIPS stent graft is in place. Patency cannot be evaluated, however secondary to poor con trast opacification. If there is clinical concern for occlusion, sonography may be considered. Mild hepatomegaly measuring 17 cm. Minimal nodularity of the hepatic contour raising the possibility of cirrhosis in the correct clinical setting. Multifocal upper abdominal varices including at the lev el of the gastroesophageal junction. The vessels are patent and normal in caliber. No abdominopelvic lymph nodes are noted to be pathologically enlarged by CT measurement criteria. The bowel is within normal limits without abnormal bowel wall thickness or bowel dilation. Diverticul ar disease without findings to suggest diverticulitis. No free air. No free abdominopelvic fluid collections. The appendix is within normal limits. The osseous structures reveal degenerative change of the lumbar spine. L5-S1 loss of disk height with vacuum disk phenomenon and posterior osseous spurring and small disk bulge. Small right-sided testic ular hydrocele. IMPRESSION: 1. No specific acute intra-abdominal findings are noted to suggest etiology of the pat ient's abdominal pain. 2. Air-fluid level present within a patulous esophagus may be secondary to esophageal dysmotility o r reflux. 3. Intrahepatic TIPS stent graft is in place. Patency cannot be evaluated, however secondary to poo r contrast opacification. If there is clinical concern for occlusion, sonography may be considered. 4. Mild hepatomegaly measuring 15 cm. Minimal nodularity of the hepatic contour raising the possibi lity of cirrhosis in the correct clinical setting. 5. Diverticular disease without findings to suggest diverticulitis. 6. Small right-sided testicular hydrocele. Electronically signed by: Ria Oscar MD 10/25/2021 11:38 PM CDT Due to temporary technical issues with the PACS/Fluency reporting system, reports are being signed by the in house radiologist without review as a courtesy to ensure prompt reporting. The interpreting r adiologist is fully responsible for the content of the report.
--- NOTE | 2021-10-26 13:00 | RAD REPORT ---
EXAM DESCRIPTION: RAD - Chest Single View - 10/25/2021 10:20 pm CLINICAL HISTORY: Cough;Fever. COMPARISON: None. TECHNIQUE: Single view AP chest radiograph(s). FINDINGS: Mild perihilar interstitial thickening. No infiltrate identified. No pleural effusion. No pneumothorax. Nonenlarged cardiomediastinal silhouette. No significant osseous abnormality. IMPRESSION: Mild perihilar interstitial thickening. No focal infiltrate identified. Electronically signed by: Emperatriz Calderon MD 10/25/2021 10:33 PM CDT Due to temporary technical issues with the PACS/Fluency reporting system, reports are being signed by the in house radiologist without review as a courtesy to ensure prompt reporting. The interpreting r adiologist is fully responsible for the content of the report.
--- NOTE | 2021-10-26 15:10 | P.PN ---
Date of Service: 10/26/21 Patient seen and examined. He states he feels better. No fever since hospitalization. Diagnosis: Influenza with influenza A. Neutropenia Thrombocytopenia Fever History of liver cirrhosis. Plan: Continue supportive measures. Empiric IV cefepime until blood culture result. Continue to monitor CBC to follow WBC and platelet counts. Hold Metformin Insulin sliding scale for glucose management.
[2021-10-27] MEDS: NA CHLORIDE 0.9% 1,000 ML IV SCH ×2 (03:05→07:44)
[2021-10-27 05:40] LABS: Absolute Lymphocytes (CBC) 0.9 K/uL (0.7-4.9); Hematocrit 36.2 % (39.6-49.0); Lymphocytes % 39.2 % (15.3-44.8); MPV 8.2 fL (7.6-11.3); RBC Red Blood Cell Count 3.52 M/uL (4.33-5.43)
[2021-10-27] MEDS ORDERED: THYROID 30 MG TAB PO SCH (06:00)
[2021-10-27 06:02] LABS: ALT/SGPT 63 U/L (12-78); AST/SGOT 51 U/L (15-37); Albumin 2.6 g/dL (3.4-5.0); Alkaline Phosphatase 91 U/L (45-117); BUN Blood Urea Nitrogen 9 mg/dL (7-18); Bicarbonate 22 mmol/L (21-32); Glucose Level 214 mg/dL (74-106); Magnesium 1.8 mg/dL (1.8-2.4); Phosphorus 2.7 mg/dL (2.5-4.9); Potassium 3.8 mmol/L (3.5-5.1); Protein, Total 5.2 g/dL (6.4-8.2); Sodium Level 138 mmol/L (136-145)
[2021-10-27 08:08] VITALS: BP 116/65; TEMP 98.2
[2021-10-27] MEDS: INSULIN -REGULAR HUMAN 50 UNIT/0.5 ML ML SQ SCH (08:31)
[2021-10-27] MEDS: OSELTAMIVIR 75 MG CAP PO SCH (08:32)
[2021-10-27] MEDS ORDERED: HOME MED 1 EA UNK (Thyroid,Pork [Armour Thyroid] 60 MG Tablet) PO SCH (09:00)
[2021-10-27 10:17] VITALS: O2SAT 96
--- NOTE | 2021-10-27 12:37 | EKG ---
Test Date: 2021-10-25 Test Time: 22:09:13 Metallurgical Lab Technician: OCTAVIO MEASUREMENT RESULTS: Intervals: Rate: 93 HI: 162 QRSD: 94 QT: 366 QTc: 455 Media: P: 14 HI: 162 QRS: -28 T: 47 INTERPRETIVE STATEMENTS: Normal sinus rhythm Voltage criteria for left ventricular hypertrophy Nonspecific ST abnormality Abnormal ECG Compared to ECG 11/11/2015 09:43:33 ST (T wave) deviation now present Sinus tachycardia no longer present Left-axis deviation no longer present Electronically Signed On 10-27-21 12:33:31 CDT by Barron Woods
--- NOTE | 2021-10-27 22:27 | P.DS ---
Admission Date: 10/26/21 Discharge Date: 10/27/21 Disposition: ROUTINE DISCHARGE Discharge Condition: GOOD Reason for Admission: Influenza Procedures: Problem List Influenza with influenza A. transient Neutropenia, Thrombocytopenia Fever History of liver cirrhosis. Brief History of Present Illness: 66yo M, PMH: cirrhosis s/p TIPS, hypothyroidism, DM2 (non-insulin dependent). Presented to ED with 2 days of body aches, fever, chills, cough, and headache. Found to have fever to 101.6 and flu A positive. Hospital Course: Patient was found to be flu A positive. Chest x-ray and CT scan did not reveal any other acute infectious process. He received one dose of antibiotics in the ER and was treated with Tamiflu. He had improvement of his symptoms and remained afebrile. Blood cultures remained negative. He was noted to have a small decrease in his white blood cells, which also improved by day of discharge. Decrease in white blood cells is most likely due to influenza infection. Discharged home with prescriptions for Tamiflu and benzonatate for cough. Recommend staying home and minimizing spread of the flu over the next few days. Follow up with PCP in ~5-7 days. Vital Signs/Physical Exam: Temp Pulse Resp BP Pulse Ox 98.2 F 69 18 116/65 96 10/27/21 08:00 10/27/21 08:00 10/27/21 08:00 10/27/21 08:00 10/27/21 08:00 General: Alert, In no apparent distress HEENT: PERRLA, EOMI Neck: Supple, JVD not distended Respiratory: Clear to auscultation bilaterally, Normal air movement, Other (+dry cough) Cardiovascular: No edema, Regular rate/rhythm Gastrointestinal: Soft and benign, Non-distended Integumentary: No significant lesion Neurological: Normal speech, Normal affect Laboratory Data at Discharge: WBC 2.2 K/uL (4.3-10.9) L D 10/27/21 05:20 Hgb 12.8 g/dL (13.6-17.9) L 10/27/21 05:20 Hct 36.2 % (39.6-49.0) L 10/27/21 05:20 Plt Count 57 K/uL (152-406) L 10/27/21 05:20 PT 14.0 SECONDS (9.5-12.5) H 10/25/21 22:02 INR 1.27 10/25/21 22:02 Sodium 138 mmol/L (136-145) 10/27/21 05:20 Potassium 3.8 mmol/L (3.5-5.1) 10/27/21 05:20 BUN 9 mg/dL (7-18) 10/27/21 05:20 Creatinine 0.52 mg/dL (0.55-1.3) L 10/27/21 05:20 Glucose 214 mg/dL (74-106) H 10/27/21 05:20 Phosphorus 2.7 mg/dL (2.5-4.9) 10/27/21 05:20 Magnesium 1.8 mg/dL (1.8-2.4) 10/27/21 05:20 Total Bilirubin 1.0 mg/dL (0.2-1.0) 10/27/21 05:20 AST 51 U/L (15-37) H 10/27/21 05:20 ALT 63 U/L (12-78) 10/27/21 05:20 Alkaline Phosphatase 91 U/L (45-117) 10/27/21 05:20 Home Medications: Thyroid,Pork [[place] Thyroid] 60 mg PO DAILY 11/11/15 Metformin HCl [Metformin HCl ER] 750 mg PO BID* 10/26/21 Benzonatate 200 mg PO Q8H PRN 5 Days #15 capsule 10/27/21 Oseltamivir [Tamiflu*] 75 mg PO BID 4 Days #8 cap 10/27/21 New Medications: Benzonatate 200 mg PO Q8H PRN 5 Days #15 capsule PRN Reason: Cough Oseltamivir [Tamiflu*] 75 mg PO BID 4 Days #8 cap Physician Discharge Instructions: Patient was found to be flu A positive. Chest x-ray and CT scan did not reveal any other acute infectious process. He received one dose of antibiotics in the ER and was treated with Tamiflu. He had improvement of his symptoms and remained afebrile. Blood cultures remained negative. He was noted to have a small decrease in his white blood cells, which also improved by day of discharge. Decrease in white blood cells is most likely due to influenza infection. Discharged home with prescriptions for Tamiflu and benzonatate for cough. Recommend staying home and minimizing spread of the flu over the next few days. Follow up with PCP in ~5-7 days. Followup: Edin Arguello MD [Primary Care Provider] - 1-2 Weeks (call to schedule an appointment ) Time spent managing pt's care (in minutes): 45
== END 2021-10-27 11:10 | disposition home or self-care (01) ==
LOC: ER 21:22 → ERHOLD 10-26 00:44 → 2ND 10-26 01:27
PROVIDERS: ADMIT Internal Medicine; ATTEND Internal Medicine
DX: J11.1 Influenza due to unidentified influenza virus with other respiratory manifestations (principal); D70.9 Neutropenia, unspecified; D69.6 Thrombocytopenia, unspecified; K74.60 Unspecified cirrhosis of liver; B18.2 Chronic viral hepatitis C; E03.9 Hypothyroidism, unspecified; E11.9 Type 2 diabetes mellitus without complications; Z20.822 Contact with and (suspected) exposure to COVID-19
CPT/HCPCS: 93005; 87040 ×2; 85025 ×3; 80048; 36415 ×2; 83735 ×3; 84100 ×2; 85610; 82947 ×5; 80076; 83605; 84443; 84484; 84439; 80053 ×2; 84145; 83880; 0240U; 71260; 74177; 71045; 96375; 96374; 99285; Q9967; J7030 ×4; J0692; G0378 ×3; 81003; 81015

== ENCOUNTER 2022-01-26 11:42 | Emergency (ER) | payer BC, OTHER ==
[2022-01-26] MEDS ORDERED: ACETAMINOPHEN 325 MG TABLET ONE (12:13)
--- NOTE | 2022-01-26 13:25 | EDPHYS ---
Physician Documentation [facility] Name: Baldomero Perez Age: 66 yrs Sex: Male : 1955 Arrival Date: 01/26/2022 Time: 11:46 Bed 19 Private MD: Edin Arguello ED Physician Apollo Lindquist HPI: 01/26 12:54 This 66 yrs old Male presents to ER via Ambulatory with complaints of Flu Symptoms. rn 12:54 The patient or guardian reports cough, flu symptoms, low-grade fever, myalgias, no rn appetite. Onset: The symptoms/episode began/occurred yesterday. Severity of symptoms: At their worst the symptoms were mild, in the emergency department the symptoms are unchanged. Modifying factors: The symptoms are alleviated by nothing, the symptoms are aggravated by nothing. Associated signs and symptoms: Pertinent positives: fever, rhinorrhea, Pertinent negatives: chest pain. The patient has not experienced similar symptoms in the past. The patient has not recently seen a physician. Historical: - Allergies: 11:55 OCTREOTIDE; ss 11:55 Zofran; ss - PMHx: 11:55 Diabetes - NIDDM; Hypothyroidism; Liver Issues; ss - Immunization history:: Client reports receiving the 2nd dose of the Covid vaccine. - Social history:: Smoking status: Patient denies any tobacco usage or history of. - Family history:: not pertinent. - Hospitalizations: : No recent hospitalization is reported. ROS: 12:54 Constitutional: + fever and chills Eyes: Negative for injury, pain, redness, and criminal attorney, ENT: + congestion Cardiovascular: Negative for chest pain, palpitations, and edema, Respiratory: + cough, neg for sob Abdomen/GI: Negative for abdominal pain, nausea, vomiting, diarrhea, and constipation, MS/Extremity: Negative for injury and deformity, Skin: Negative for injury, rash, and discoloration, Neuro: Negative for numbness, tingling, and seizure. Exam: 12:54 Constitutional: This is a well developed, well nourished patient who is awake, alert, rn and in no acute distress. Ambulatory to room without difficulty or assistance. Head/Face: Normocephalic, atraumatic. Eyes: Pupils equal round and reactive to light, extra-ocular motions intact. Cardiovascular: Tachycardic, regular. No pulse deficits. Respiratory: No increased work of breathing, no retractions or nasal flaring. Abdomen/GI: Soft, non-tender Skin: Warm, dry MS/ Extremity: Pulses equal, no cyanosis. Neuro: Awake and alert, GCS 15 Vital Signs: 11:54 BP 147 / 74; Pulse 102; Resp 20; Temp 100.3(O); Pulse Ox 98% on R/A; Weight 78.47 kg; ss Height 5 ft. 11 in. (180.34 cm); Pain 7/10; 13:46 BP 123 / 66; Pulse 102; Resp 17 S; Pulse Ox 96% on R/A; jg9 11:54 Body Mass Index 24.13 (78.47 kg, 180.34 cm) ss MDM: 12:03 Patient medically screened. rn 13:24 Differential Diagnosis: Bronchitis Influenza Upper Respiratory Infection Viral Syndrome rn Other covid. Data reviewed: vital signs, nurses notes, lab test result(s), and as a result, I will discharge patient. Counseling: I had a detailed discussion with the patient and/or guardian regarding: the historical points, exam findings, and any diagnostic results supporting the discharge/admit diagnosis, lab results, the need for outpatient follow up, to return to the emergency department if symptoms worsen or persist or if there are any questions or concerns that arise at home. Special discussion: I discussed with the patient/guardian in detail that at this point there is no indication for admission to the hospital. It is understood, however, that if the symptoms persist or worsen the patient needs to return immediately for re-evaluation. ED course: No oxygen requirement, already over her infection, denies sob, will dc home with return precautions.. 01/26 11:56 Order name: COVID-19 SARS RT PCR (Document "Date of Onset" if Symptomatic); Complete ss Time: 13:24 01/26 11:56 Order name: Flu; Complete Time: 13:24 ss Administered Medications: 12:09 Drug: Tylenol 650 mg Route: PO; ss 13:56 Follow up: Response: No adverse reaction jg9 Disposition Summary: 01/26/22 13:25 Discharge Ordered Location: Home rn Problem: new rn Symptoms: have improved rn Condition: Stable rn Diagnosis - SARS-associated coronavirus as the cause of diseases classified elsewhere rn Followup: rn - With: Private Physician - When: As needed - Reason: Recheck today's complaints, Re-evaluation by your physician Discharge Instructions: - Discharge Summary Sheet rn - COVID-19 rn - Viral Illness, Adult rn - Prevent the Spread of COVID-19 if You Are Sick - [facility] rn Forms: - Medication Reconciliation Form rn - Thank You Letter rn - Antibiotic risk management internship - Prescription Opioid Use rn Signatures: Dispatcher [employer] EDApollo Camejo MD MD rn Smirch, Shelby, RN RN ss Gilmore, Jennifer RN jg9
--- NOTE | 2022-01-26 13:25 | ER ---
Nurse's Notes [facility] Name: Baldomero Perez Age: 66 yrs Sex: Male : 1955 Arrival Date: 01/26/2022 Time: 11:46 Bed 19 Private MD: Edin Arguello Diagnosis: SARS-associated coronavirus as the cause of diseases classified elsewhere Presentation: 01/26 11:54 Chief complaint: Patient states: Body aches and mild cough with headache that began ss yesterday. Coronavirus screen: Client denies travel out of the [place] in the last 14 days. Client presents with at least one sign or symptom that may indicate coronavirus-19. Ebola Screen: Patient denies exposure to infectious person. Patient denies travel to an Ebola-affected area in the 21 days before illness onset. Initial Sepsis Screen: Does the patient meet any 2 criteria? No. Patient's initial sepsis screen is negative. Does the patient have a suspected source of infection? No. Patient's initial sepsis screen is negative. Risk Assessment: Do you want to hurt yourself or someone else? Patient reports no desire to harm self or others. Onset of symptoms was January 25, 2022. 11:54 Method Of Arrival: Ambulatory ss 11:54 Acuity: MARISOL 3 ss Triage Assessment: 13:50 General: Appears in no apparent distress. Behavior is calm, cooperative. Pain: Denies jg9 pain. Historical: - Allergies: 11:55 OCTREOTIDE; ss 11:55 Zofran; ss - PMHx: 11:55 Diabetes - NIDDM; Hypothyroidism; Liver Issues; ss - Immunization history:: Client reports receiving the 2nd dose of the Covid vaccine. - Social history:: Smoking status: Patient denies any tobacco usage or history of. - Family history:: not pertinent. - Hospitalizations: : No recent hospitalization is reported. Screenin:53 Abuse screen: Denies threats or abuse. Denies injuries from another. Nutritional jg9 screening: No deficits noted. Tuberculosis screening: No symptoms or risk factors identified. Fall Risk None identified. Vital Signs: 11:54 BP 147 / 74; Pulse 102; Resp 20; Temp 100.3(O); Pulse Ox 98% on R/A; Weight 78.47 kg; ss Height 5 ft. 11 in. (180.34 cm); Pain 7/10; 13:46 BP 123 / 66; Pulse 102; Resp 17 S; Pulse Ox 96% on R/A; jg9 11:54 Body Mass Index 24.13 (78.47 kg, 180.34 cm) ED Course: 11:46 Patient arrived in ED. mr 11:47 Edin Arguello is Private Physician. mr 11:55 Triage completed. ss 11:55 Arm band placed on right wrist. ss 12:03 Apollo Lindquist MD is Attending Physician. rn 13:15 Patient has correct armband on for positive identification. Bed in low position. Call jg9 light in reach. Side rails up X 1. 13:18 Marielle Boyce, JADEN is Primary Nurse. jg9 13:54 No provider procedures requiring assistance completed. jg9 13:55 Patient did not have IV access during this emergency room visit. jg9 Administered Medications: 12:09 Drug: Tylenol 650 mg Route: PO; 13:56 Follow up: Response: No adverse reaction jg9 Medication: 13:54 VIS not applicable for this client. jg9 Outcome: 13:25 Discharge ordered by . rn 13:54 Discharged to home jg9 13:54 Condition: stable 13:54 Discharge instructions given to patient, Instructed on discharge instructions, follow jg9 up and referral plans. Demonstrated understanding of instructions, follow-up care. 13:55 Patient left the ED. jg9 Signatures: Clive La bunn Apollo Lindquist MD MD rn Smirch, Shelby, RN RN Marielle Boyce RN RN jg9
[2022-01-26 14:04] VITALS: TEMP 100.3
[2022-01-26 14:05] VITALS: BP 123/66; O2SAT 96
== END 2022-01-26 13:55 | disposition home or self-care (01) ==
LOC: ER 11:42
DX: U07.1 COVID-19 (principal); E11.9 Type 2 diabetes mellitus without complications; Z88.8 Allergy status to other drugs, medicaments and biological substances
CPT/HCPCS: 87804 ×2; U0003

== ENCOUNTER 2024-05-08 17:54 | Observation (INO) | payer OTHER ==
[2024-05-08] MEDS ORDERED: MECLIZINE HCL 12.5 MG TAB ONE (18:43)
[2024-05-08 18:50] LABS: Absolute Eosinophils 0.1 K/uL (0-0.5); Absolute Lymphocytes (CBC) 0.9 K/uL (0.7-4.9); Absolute Monocytes 0.2 K/uL (0.1-1.3); Absolute Neutrophil 1.8 K/uL (1.8-8.0); Basophils % 0.9 % (0-1.3); Eosinophils % 1.9 % (0-4.4); Hematocrit 35.8 % (39.6-49.0); Hemoglobin 12.5 g/dL (13.6-17.9); Lymphocytes % 29.7 % (15.3-44.8); MCH 35.5 pg (27.0-35.0); MCV 101.4 fL (80-100); MPV 8.2 fL (7.6-11.3); Monocytes % 6.7 % (3.3-12.3); Neutrophils % 60.8 % (41.7-73.7); Nucleated Red Blood Cells % 0.1 % (0-0); Platelets 65 thou/uL (152-406); RBC Red Blood Cell Count 3.53 M/uL (4.33-5.43); Red Cell Distribution Width 13.5 % (12.1-15.2)
[2024-05-08 18:55] LABS: PT Prothrombin Time 13.5 SECONDS (9.4-12.5); PTT, Activated Partial Thromb 33.1 SECONDS (24.3-36.9); Protime INR 1.21
--- NOTE | 2024-05-08 18:55 | RAD REPORT ---
EXAM: Ct Stroke Brain Wo Cont HISTORY: STROKE ALERT COMPARISON: None TECHNIQUE: Multiple contiguous axial images were obtained for a CT of the brain without contrast. Sag ittal and coronal reformats were performed. One or more of the following dose reduction techniques were used: Automated exposure control, adjus tment of the mA and kV according to patient size, and iterative reconstruction. Unless otherwise specified, incidental findings do not require dedicated imaging follow-up. FINDINGS: No evidence of hydrocephalus, intracranial hemorrhage, or extra-axial fluid collection. The brain is normal in morphology. The calvarium is intact. The visualized paranasal sinuses and mastoid air cells are essentially clear . IMPRESSION: No evidence of acute intracranial abnormality. The findings were verbally communicated via telephone to Sanju Paulino on 05/08/2024 6:52 PM.
--- NOTE | 2024-05-08 18:58 | RAD REPORT ---
EXAMINATION: CTA HEAD CLINICAL INDICATION: Male, 68 years old. DIZZINESS TECHNIQUE: Axial CT images were obtained through the head after intravenous contrast utilizing angiog raphic protocol with 3D post-processing (maximum intensity projection images, volume rendered images and/or shaded surface rendered images). One or more of the following dose reduction technique s were used: Automated exposure control, adjustment of the mA and/or kV according to patient size, and/or iterative reconstruction. Unless otherwise specified, incidental findings do not require dedic ated imaging follow-up. COMPARISON: No prior exam. FINDINGS: ICA: The petrous, cavernous, and supraclinoid segments of the bilateral internal carotid arteries are normal. The ophthalmic artery origins are visualized and normal. The posterior communicating arteries are patent. MIRELLA: Anterior cerebral arteries are normal bilaterally. The anterior communicating artery is patent. MCA: Middle cerebral arteries are normal bilaterally. TRIMMER CLIMBER: Posterior cerebral arteries are normal bilaterally. Vertebrobasilar: The left vertebral artery is patent. Right vertebral artery is diminutive. The basil ar artery is normal in appearance. 3D images confirm these findings. IMPRESSION: No evidence of large vessel occlusion or critical stenosis. Right vertebral artery is diminutive, pos sibly on a congenital/developmental basis.
--- NOTE | 2024-05-08 19:01 | RAD REPORT ---
EXAMINATION: Neck Angio CLINICAL INDICATION: Male, 68 years old. [facility] Dizziness Bed: TECHNIQUE: Axial CT images were obtained from the aortic arch to the skull base after intravenous con trast utilizing angiographic protocol. Multiplanar reformats, as well as 3D post-processing (maximum intensity projection images, volume rendered images and/or shaded surface rendered images) w ere generated and reviewed. One or more of the following dose reduction techniques were used: Automated exposure control, adjustment of the mA and/or kV according to patient size, and/or iterativ e reconstruction. Unless otherwise specified, incidental findings do not require dedicated imaging follow-up. COMPARISON: No prior exam. FINDINGS: AORTA: The imaged aortic arch is normal. Normal three-vessel configuration of the arch. CCA: No artifact The common carotid arteries are patent and normal in caliber. ICA/ECA: Bilateral internal and external carotid arteries are patent. There is no significant interna l carotid artery stenosis. VERTEBRAL: The cervical vertebral arteries are patent to the skull base. Right vertebral artery is di minutive, with a small fenestration at the level of dural entry with further diminutive appearance of the intradural segment. Vertebral arteries are patent. SOFT TISSUE: No significant neck soft tissue abnormalities. The visualized lung apices are clear. 3D images confirm these findings. IMPRESSION: No significant flow abnormality of the neck vessels is identified. Diminutive appearance of the right vertebral artery as above. NASCET criteria used to quantify ICA stenosis, with the following grading scheme: Mild 0-49% stenosis Moderate 50-69% stenosis Severe 70-99% stenosis Reference: [place] Symptomatic Carotid Endarterectomy Trial Collaborators; Geovany PICKARD, Rosibel DW, Tamia RB, et al. Beneficial effect of carotid endarterectomy in symptomatic patients with high-grade carotid stenosis. N Engl J Med. 1990Mar 15;325(7):445-53.
--- NOTE | 2024-05-08 19:08 | EDPHYS ---
Physician Documentation [facility] Name: Baldomero Perez Age: 68 yrs Sex: Male : 1955 Arrival Date: 05/08/2024 Time: 17:54 Bed 4 Private MD: ED Physician Sanju Paulino HPI: 05/08 18:10 This 68 yrs old Male presents to ER via Ambulatory with complaints of Dizziness, Nausea.ms3 18:10 68-year-old male with past medical history of diabetes, hypothyroidism, liver problems ms3 presents to the emergency department for dizziness that began at 3:30 PM. Patient denies any alleviating or inciting factors. Patient denies numbness, weakness.. Historical: - Allergies: 18:05 OCTREOTIDE; hb 18:05 Zofran; hb - Home Meds: 18:05 [place] Thyroid 60 mg Oral tab 60 mg after meals and before bedtime for Hypothyroidism hb [Active]; Metformin Oral [Active]; - PMHx: 18:05 Diabetes - NIDDM; Hypothyroidism; Liver Issues; hb - Immunization history:: Adult Immunizations up to date. - Infectious Disease History:: Denies. - Social history:: Smoking status: Patient denies any tobacco usage or history of. ROS: 18:10 Constitutional: Negative for fever, and chills. Cardiovascular: Negative for chest ms3 pain, and palpitations. Respiratory: Negative for shortness of breath, cough, wheezing, and pleuritic chest pain, Abdomen/GI: Negative for abdominal pain, nausea, vomiting, diarrhea, and constipation, MS/Extremity: Negative for injury and deformity, Skin: Negative for injury, rash, and discoloration, 18:10 Neuro: Positive for dizziness, Exam: 18:10 Constitutional: This is a well developed, well nourished patient who is awake, alert, ms3 and in no acute distress. Chest/axilla: Normal chest wall appearance and motion. Nontender with no deformity. Cardiovascular: Regular rate and rhythm with a normal S1 and S2. No gallops, murmurs, or rubs. Normal PMI, no JVD. No pulse deficits. Respiratory: Lungs have equal breath sounds bilaterally, clear to auscultation and percussion. No rales, rhonchi or wheezes noted. No increased work of breathing, no retractions or nasal flaring. Abdomen/GI: Soft, non-tender, with normal bowel sounds. No distension or tympany. No guarding or rebound. No evidence of tenderness throughout. Skin: Warm, dry with normal turgor. Normal color with no rashes, no lesions, and no evidence of cellulitis. 18:10 Neuro: Orientation: is normal, to person, place, time \T\ situation. Mentation: is normal, Memory: is normal, Cranial nerves: CN I not tested, CN II- XII are normal as tested, Cerebellar function: is grossly normal, normal finger to nose testing, Motor: is normal, Sensation: is normal, 19:08 ECG was reviewed by the Attending Physician. ms3 Vital Signs: 18:03 BP 158 / 80; Pulse 84; Resp 16; Temp 98.5; Pulse Ox 99% on R/A; Weight 79.38 kg; Height hb 5 ft. 10 in. ; Pain 0/10; 19:30 BP 171 / 85; Pulse 79; Resp 18 S; Pulse Ox 99% on R/A; br2 20:30 BP 156 / 86; Pulse 74; Resp 18; Pulse Ox 99% ; br2 21:30 BP 162 / 86; Pulse 74; Resp 18 S; Pulse Ox 99% on R/A; br2 18:03 Body Mass Index 25.11 (79.38 kg, 177.8 cm) hb 18:03 Pain Scale: Adult hb NIH Stroke Scale Scores: 18:06 NIHSS Score: 0 hb 18:10 NIHSS Score: 0 ms3 18:45 NIHSS Score: 0 iw MDM: 18:12 Patient medically screened. ms3 18:49 ED course: Patient states his dizziness has improved since arrival to the Emergency ms3 Department. Awaiting CT Head read at this time. CT Head images reviewed by me does not show ICH. NIH remains 0. 18:52 ED course: Discussed CT Head with Dr Patino and CT Head negative. ms3 18:56 Differential diagnosis: cardiac arrhythmia, CVA, TIA. Data reviewed: vital signs, ms3 nurses notes, lab test result(s), EKG, radiologic studies, and as a result, I will admit patient. 19:00 ED course: Discussed risks and benefits of TNKase with patient and patient declines ms3 administration of TNKase. Risks and benefits discussed with patient and his . Discussed case with Dr Sy and he recommends ASA, Statin and Follic acid.. 05/08 18:09 Order name: Basic Metabolic Panel; Complete Time: 19:19 ms3 05/08 18:09 Order name: CBC with Diff ms3 05/08 18:09 Order name: High Sensitivity Troponin; Complete Time: 19:19 ms3 05/08 18:09 Order name: Magnesium; Complete Time: 19:19 ms3 05/08 18:09 Order name: Protime (+inr); Complete Time: 19:06 ms3 05/08 18:09 Order name: Ptt, Activated; Complete Time: 19:06 ms3 05/08 18:53 Order name: Glucose, Ancillary Testing; Complete Time: 19:06 EDMS 05/08 20:07 Order name: CBC Smear Scan EDMS 05/08 20:27 Order name: Hemoglobin A1c EDMS 05/08 20:27 Order name: T4 Free EDMS 05/08 20:27 Order name: Thyroid Stimulating Hormone EDMS 05/08 20:27 Order name: Urinalysis w/ reflexes EDMS 05/08 20:27 Order name: CBC with Automated Diff EDMS 05/08 20:27 Order name: CBC with Automated Diff EDMS 05/08 20:27 Order name: Comprehensive Metabolic Panel EDMS 05/08 20:27 Order name: Comprehensive Metabolic Panel EDMS 05/08 20:27 Order name: Lipid Profile EDMS 05/08 20:27 Order name: Lipid Profile EDMS 05/08 18:09 Order name: CT Neck Angio; Complete Time: 19:06 ms3 05/08 18:09 Order name: CT Stroke Brain w/o Contrast; Complete Time: 19:06 ms3 05/08 18:09 Order name: Stroke CXR 1 View; Complete Time: 19:19 ms3 05/08 18:15 Order name: Head angio; Complete Time: 19:06 EDMS 05/08 20:27 Order name: Echo with Doppler EDMS 05/08 20:27 Order name: IRF Screen EDMS 05/08 20:27 Order name: Physical Therapy Consult EDMS 05/08 20:27 Order name: Speech Therapy Consult EDMS 05/08 18:09 Order name: Accucheck; Complete Time: 18:44 ms3 05/08 18:09 Order name: Cardiac monitoring; Complete Time: 18:47 ms3 05/08 18:09 Order name: EKG - Nurse/Tech; Complete Time: 18:47 ms3 05/08 18:09 Order name: IV Saline Lock; Complete Time: 18:44 ms3 05/08 18:09 Order name: Labs collected and sent; Complete Time: 18:44 ms3 05/08 18:09 Order name: NPO; Complete Time: 18:45 ms3 05/08 18:09 Order name: O2 Per Protocol; Complete Time: 18:44 ms3 05/08 18:09 Order name: O2 Sat Monitoring; Complete Time: 18:44 ms3 05/08 18:09 Order name: Stroke Swallow Screen; Complete Time: 18:44 ms3 EC:08 Rate is 86 beats/min. Rhythm is regular. Left axis deviation noted. DE interval is ms3 normal. QRS interval is normal. Clinical impression: NSR w/ Non-specific ST/T Changes. Interpreted by me. Reviewed by me. Administered Medications: 18:45 Drug: Meclizine PO 50 mg PO once Route: PO; ss 20:02 Follow up: Response: No adverse reaction; RASS: Alert and Calm (0) br2 19:53 Drug: Aspirin PO Chewable Tablet 162 mg PO once Route: PO; br2 22:07 Follow up: Response: No adverse reaction br2 19:53 Drug: foLIC Acid PO 1 mg PO once Route: PO; br2 22:07 Follow up: Response: No adverse reaction br2 21:44 Not Given (Physician Discretion): [id number] mg PO once lg3 Disposition Summary: 05/08/24 19:08 Hospitalization Ordered Notes: Hospitalization Status: Observation ms3 Provider: Gabriela Hein ms3 Location: Telemetry/MedSurg (observation) ms3 Condition: Stable ms3 Problem: new ms3 Symptoms: are unchanged ms3 Bed/Room Type: Standard ms3 Room Assignment: 230(05/08/24 20:48) rv1 Diagnosis - Dizziness ms3 - Anemia, unspecified ms3 - Essential (primary) hypertension ms3 Forms: - Medication Reconciliation Form ms3 - SBAR form ms3 - Leadership Thank You Letter ms3 NIH Stroke Scale - NIH Stroke Score Date: 05/08/2024 Time: 18:06 Total Score = 0 10. Dysarthria (speech clarity - read or repeat words) - 0(Normal) 11. Extinction and Inattention (visual/tactile/auditory/spatial/personal) - 0(No abnormality) 1a. Level of Consciousness (LOC) - 0(Alert) 1b. Level of Consciousness (LOC) (Month \T\ Age) - 0(Both) 1c. LOC Commands (Open \T\ Closes Eyes/Post Closing Specialist) - 0(Both) 2. Best Gaze (Lateral Gaze Paresis) - 0(Normal) 3. Visual Field Loss - 0(No visual loss) 4. Facial Palsy - 0(Normal) 5a. Left Arm: Motor (10-second hold) - 0(No drift) 5b. Right Arm: Motor (10-second hold) - 0(No drift) 6a. Left Leg: Motor (5-second hold - always test supine) - 0(No drift) 6b. Right Leg: Motor (5-second hold - always test supine) - 0(No drift) 7. Limb Ataxia (finger/nose \T\ heel/maxwell - test with eyes open) - 0(Absent) 8. Sensory Loss (pinprick arms/legs/face) - 0(Normal) 9. Best Language: Aphasia (description/naming/reading) - 0(No aphasia) Initials: NIH Stroke Scale - NIH Stroke Score Date: 05/08/2024 Time: 18:10 Total Score = 0 10. Dysarthria (speech clarity - read or repeat words) - 0(Normal) 11. Extinction and Inattention (visual/tactile/auditory/spatial/personal) - 0(No abnormality) 1a. Level of Consciousness (LOC) - 0(Alert) 1b. Level of Consciousness (LOC) (Month \T\ Age) - 0(Both) 1c. LOC Commands (Open \T\ Closes Eyes/Post Closing Specialist) - 0(Both) 2. Best Gaze (Lateral Gaze Paresis) - 0(Normal) 3. Visual Field Loss - 0(No visual loss) 4. Facial Palsy - 0(Normal) 5a. Left Arm: Motor (10-second hold) - 0(No drift) 5b. Right Arm: Motor (10-second hold) - 0(No drift) 6a. Left Leg: Motor (5-second hold - always test supine) - 0(No drift) 6b. Right Leg: Motor (5-second hold - always test supine) - 0(No drift) 7. Limb Ataxia (finger/nose \T\ heel/maxwell - test with eyes open) - 0(Absent) 8. Sensory Loss (pinprick arms/legs/face) - 0(Normal) 9. Best Language: Aphasia (description/naming/reading) - 0(No aphasia) Initials: ms3 NIH Stroke Scale - NIH Stroke Score Date: 05/08/2024 Time: 18:45 Total Score = 0 10. Dysarthria (speech clarity - read or repeat words) - 0(Normal) 11. Extinction and Inattention (visual/tactile/auditory/spatial/personal) - 0(No abnormality) 1a. Level of Consciousness (LOC) - 0(Alert) 1b. Level of Consciousness (LOC) (Month \T\ Age) - 0(Both) 1c. LOC Commands (Open \T\ Closes Eyes/Post Closing Specialist) - 0(Both) 2. Best Gaze (Lateral Gaze Paresis) - 0(Normal) 3. Visual Field Loss - 0(No visual loss) 4. Facial Palsy - 0(Normal) 5a. Left Arm: Motor (10-second hold) - 0(No drift) 5b. Right Arm: Motor (10-second hold) - 0(No drift) 6a. Left Leg: Motor (5-second hold - always test supine) - 0(No drift) 6b. Right Leg: Motor (5-second hold - always test supine) - 0(No drift) 7. Limb Ataxia (finger/nose \T\ heel/maxwell - test with eyes open) - 0(Absent) 8. Sensory Loss (pinprick arms/legs/face) - 0(Normal) 9. Best Language: Aphasia (description/naming/reading) - 0(No aphasia) Initials: iw Signatures: Dispatcher [employer] EDMS Susan Costello RN JADEN ss Quin Samayoa RN RN Sanju Paulino DO DO ms3 Brissa Mina rv1 Katie Galindo RN RN br2 Lizeth Johnson RN lg3 Corrections: (The following items were deleted from the chart) 18:10 18:10 Neck Angio+CT.RAD.BRZ ordered. EDMS EDMS 18:10 18:10 CT-STROKE BRAIN W/O CONTRAST+CT.RAD.BRZ ordered. EDMS EDMS 18:10 18:10 Chest Single View+RAD.RAD.BRZ ordered. EDMS EDMS 20:48 19:08 ms3 rv1
--- NOTE | 2024-05-08 19:08 | ER ---
Nurse's Notes [facility] Name: Baldomero Perez Age: 68 yrs Sex: Male : 1955 Arrival Date: 05/08/2024 Time: 17:54 Bed 4 Private MD: Diagnosis: Dizziness;Anemia, unspecified;Essential (primary) hypertension Presentation: 05/08 18:03 Chief complaint: Dizziness and nausea that started at 1530 today. VAN NEGATIVE. hb Coronavirus screen: At this time, the client does not indicate any symptoms associated with coronavirus-19. Ebola Screen: No symptoms or risks identified at this time. Initial Sepsis Screen: Does the patient meet any 2 criteria? No. Patient's initial sepsis screen is negative. Does the patient have a suspected source of infection? No. Patient's initial sepsis screen is negative. Risk Assessment: Do you want to hurt yourself or someone else? Patient reports no desire to harm self or others. Onset of symptoms was May 08, 2024. 18:03 Method Of Arrival: Ambulatory hb 18:03 Acuity: MARISOL 2 hb Historical: - Allergies: 18:05 OCTREOTIDE; hb 18:05 Zofran; hb - Home Meds: 18:05 [place] Thyroid 60 mg Oral tab 60 mg after meals and before bedtime for Hypothyroidism hb [Active]; Metformin Oral [Active]; - PMHx: 18:05 Diabetes - NIDDM; Hypothyroidism; Liver Issues; hb - Immunization history:: Adult Immunizations up to date. - Infectious Disease History:: Denies. - Social history:: Smoking status: Patient denies any tobacco usage or history of. Screenin:43 Abuse screen: Denies threats or abuse. Denies injuries from another. Nutritional ss screening: No deficits noted. [place] Swallow Protocol Exclusion Criteria: Exclusion Criteria Result: Proceed Brief Cognitive Screen What is your name? Normal, Where are you right now? Normal, What year is it? Normal. Oral Mechanism Examination Facial Symmetry: Normal, Motion: Normal, Lip Closure: Normal, Oral Mechanism Result: Normal. 3 oz Water Swallow Challenge: Pt able to drink all water without stopping, coughing, choking or throat clearing: Yes Result: PASS MD Notified: Sanju Paulino DO. 18:49 Tuberculosis screening: No symptoms or risk factors identified. iw Assessment: 18:02 Reassessment: Dr. Paulino in triage to assess pt. hb 18:08 Reassessment: CODE STROKE CALLED. hb 18:21 Reassessment: pt remains in CT at this time. iw 18:43 [place] Swallow Protocol Exclusion Criteria: Brief Cognitive Screen What is your name? iw Normal, Where are you right now? Normal, What year is it? Normal. Oral Mechanism Examination Facial Symmetry: Normal, Motion: Normal, Lip Closure: Normal, Oral Mechanism Result: Normal. 3 oz Water Swallow Challenge: Pt able to drink all water without stopping, coughing, choking or throat clearing: Yes Result: PASS MD Notified: Sanju Paulino DO. 18:45 General: Appears in no apparent distress. comfortable, Behavior is calm, cooperative. iw Neuro: Level of Consciousness is awake, alert, obeys commands, Oriented to person, place, time, situation, [place] Operator are equal bilaterally Moves all extremities. Full function Speech is normal, Facial symmetry appears normal, Reports dizziness. Cardiovascular: Patient's skin is warm and dry. Respiratory: Respiratory effort is even, unlabored, Respiratory pattern is regular, symmetrical. GI: Abdomen is flat, non-distended, Reports nausea. Derm: Skin is intact. 18:45 VAN Scoring: Arm Drift: Patients demonstrates NO arm weakness. Patient is VAN Negative. iw 18:49 Reassessment: pt reports rapidly improving symptoms. iw 18:49 TNKase (Tenecteplase) Screening: Contraindications: Rapidly improving condition or iw minor deficit: Yes. 19:15 Reassessment: Patient and/or family updated on plan of care and expected duration. Pain br2 level reassessed. Patient is alert, oriented x 3, equal unlabored respirations, skin warm/dry/pink. Patient states feeling better. Patient states symptoms have improved. Pain: Denies pain. Neuro: [place] Agitation-Sedation Scale (RASS): 0 - Alert and Calm Level of Consciousness is awake, Oriented to person, place, time, Moves all extremities. Speech is normal, Facial symmetry appears normal. Vital Signs: 18:03 BP 158 / 80; Pulse 84; Resp 16; Temp 98.5; Pulse Ox 99% on R/A; Weight 79.38 kg; Height hb 5 ft. 10 in. ; Pain 0/10; 19:30 BP 171 / 85; Pulse 79; Resp 18 S; Pulse Ox 99% on R/A; br2 20:30 BP 156 / 86; Pulse 74; Resp 18; Pulse Ox 99% ; br2 21:30 BP 162 / 86; Pulse 74; Resp 18 S; Pulse Ox 99% on R/A; br2 18:03 Body Mass Index 25.11 (79.38 kg, 177.8 cm) hb 18:03 Pain Scale: Adult hb NIH Stroke Scale Scores: 18:06 NIHSS Score: 0 hb 18:10 NIHSS Score: 0 ms3 18:45 NIHSS Score: 0 iw ED Course: 17:58 Patient arrived in ED. mr 18:04 Sanju Paulino DO is Attending Physician. ms3 18:05 Triage completed. hb 18:05 Arm band placed on. hb 18:30 CT Stroke Brain w/o Contrast In Process Unspecified. EDMS 18:35 CT Neck Angio In Process Unspecified. EDMS 18:35 Head angio In Process Unspecified. EDMS 18:44 Tiffany Cevallos, RN is Primary Nurse. iw 18:46 Patient has correct armband on for positive identification. Placed in gown. Bed in low iw position. Call light in reach. Side rails up X2. Provided Education on: lab draw. Client placed on continuous cardiac and pulse oximetry monitoring. NIBP monitoring applied. conveyor monitor on. 18:46 Initial lab(s) drawn, by me, sent to lab. Inserted saline lock: 22 gauge in right iw antecubital area, using aseptic technique. Blood collected. Flushed with 10 mL NS. 19:00 Report received from FELICIANO. br2 19:06 Stroke CXR 1 View In Process Unspecified. EDMS 19:07 Gabriela Hein MD is Hospitalizing Provider. ms3 Administered Medications: 18:45 Drug: Meclizine PO 50 mg PO once Route: PO; ss 20:02 Follow up: Response: No adverse reaction; RASS: Alert and Calm (0) br2 19:53 Drug: Aspirin PO Chewable Tablet 162 mg PO once Route: PO; br2 22:07 Follow up: Response: No adverse reaction br2 19:53 Drug: foLIC Acid PO 1 mg PO once Route: PO; br2 22:07 Follow up: Response: No adverse reaction br2 21:44 Not Given (Physician Discretion): [id number] mg PO once lg3 Medication: 18:46 VIS not applicable for this client. iw Outcome: 19:08 Decision to Hospitalize by Provider. ms3 22:08 Patient left the ED. br2 NIH Stroke Scale - NIH Stroke Score Date: 05/08/2024 Time: 18:06 Total Score = 0 10. Dysarthria (speech clarity - read or repeat words) - 0(Normal) 11. Extinction and Inattention (visual/tactile/auditory/spatial/personal) - 0(No abnormality) 1a. Level of Consciousness (LOC) - 0(Alert) 1b. Level of Consciousness (LOC) (Month \T\ Age) - 0(Both) 1c. LOC Commands (Open \T\ Closes Eyes/Pmo Analyst) - 0(Both) 2. Best Gaze (Lateral Gaze Paresis) - 0(Normal) 3. Visual Field Loss - 0(No visual loss) 4. Facial Palsy - 0(Normal) 5a. Left Arm: Motor (10-second hold) - 0(No drift) 5b. Right Arm: Motor (10-second hold) - 0(No drift) 6a. Left Leg: Motor (5-second hold - always test supine) - 0(No drift) 6b. Right Leg: Motor (5-second hold - always test supine) - 0(No drift) 7. Limb Ataxia (finger/nose \T\ heel/maxwell - test with eyes open) - 0(Absent) 8. Sensory Loss (pinprick arms/legs/face) - 0(Normal) 9. Best Language: Aphasia (description/naming/reading) - 0(No aphasia) Initials: NIH Stroke Scale - NIH Stroke Score Date: 05/08/2024 Time: 18:10 Total Score = 0 10. Dysarthria (speech clarity - read or repeat words) - 0(Normal) 11. Extinction and Inattention (visual/tactile/auditory/spatial/personal) - 0(No abnormality) 1a. Level of Consciousness (LOC) - 0(Alert) 1b. Level of Consciousness (LOC) (Month \T\ Age) - 0(Both) 1c. LOC Commands (Open \T\ Closes Eyes/Pmo Analyst) - 0(Both) 2. Best Gaze (Lateral Gaze Paresis) - 0(Normal) 3. Visual Field Loss - 0(No visual loss) 4. Facial Palsy - 0(Normal) 5a. Left Arm: Motor (10-second hold) - 0(No drift) 5b. Right Arm: Motor (10-second hold) - 0(No drift) 6a. Left Leg: Motor (5-second hold - always test supine) - 0(No drift) 6b. Right Leg: Motor (5-second hold - always test supine) - 0(No drift) 7. Limb Ataxia (finger/nose \T\ heel/maxwell - test with eyes open) - 0(Absent) 8. Sensory Loss (pinprick arms/legs/face) - 0(Normal) 9. Best Language: Aphasia (description/naming/reading) - 0(No aphasia) Initials: ms3 NIH Stroke Scale - NIH Stroke Score Date: 05/08/2024 Time: 18:45 Total Score = 0 10. Dysarthria (speech clarity - read or repeat words) - 0(Normal) 11. Extinction and Inattention (visual/tactile/auditory/spatial/personal) - 0(No abnormality) 1a. Level of Consciousness (LOC) - 0(Alert) 1b. Level of Consciousness (LOC) (Month \T\ Age) - 0(Both) 1c. LOC Commands (Open \T\ Closes Eyes/Pmo Analyst) - 0(Both) 2. Best Gaze (Lateral Gaze Paresis) - 0(Normal) 3. Visual Field Loss - 0(No visual loss) 4. Facial Palsy - 0(Normal) 5a. Left Arm: Motor (10-second hold) - 0(No drift) 5b. Right Arm: Motor (10-second hold) - 0(No drift) 6a. Left Leg: Motor (5-second hold - always test supine) - 0(No drift) 6b. Right Leg: Motor (5-second hold - always test supine) - 0(No drift) 7. Limb Ataxia (finger/nose \T\ heel/maxwell - test with eyes open) - 0(Absent) 8. Sensory Loss (pinprick arms/legs/face) - 0(Normal) 9. Best Language: Aphasia (description/naming/reading) - 0(No aphasia) Initials: Signatures: Dispatcher [employer] EDCT [place], [place], Reg Reg mr Tiffany Cevallos, JADEN STANLEY iw Susan Costello RN RN ss Quin Samayoa RN RN hb Sanju Paulino, DO ms3 Katie Galindo RN RN br2 AbleLizeth RN lg3 Corrections: (The following items were deleted from the chart) 18:08 18:03 Chief complaint: Dizziness and nausea that started 3 hours ago. hb hb 18:09 18:03 Acuity: MARISOL 3 hb hb 19:00 18:45 [place] Swallow Protocol Exclusion Criteria: Brief Cognitive Screen What is iw your name? Normal, Where are you right now? Normal, What year is it? Normal. Oral Mechanism Examination Facial Symmetry: Normal, Motion: Normal, Lip Closure: Normal, Oral Mechanism Result: Normal. 3 oz Water Swallow Challenge: Pt able to drink all water without stopping, coughing, choking or throat clearing: Yes Result: PASS MD Notified: Sanju Paulino DO iw 19:07 18:46 Inserted saline lock: 22 gauge in right antecubital area, using aseptic iw technique. Blood collected. Flushed with 10 mL NS iw
[2024-05-08 19:11] LABS: Potassium 3.9 mEq/L (3.5-5.1); Troponin High Sensitivity 9.6 pg/mL (<58.9)
[2024-05-08 19:16] LABS: Anion Gap 12.9 mEq/L (5.0-15.0); Magnesium 1.6 mg/dL (1.6-2.4)
--- NOTE | 2024-05-08 19:16 | RAD REPORT ---
EXAMINATION: ONE VIEW CHEST XR CLINICAL INDICATION: Male, 68 years old.,Dizziness TECHNIQUE: Frontal chest projection is submitted. Examination is limited by patient positioning and t echnique. COMPARISON: 10/25/2021 FINDINGS: The lungs are well inflated and clear. Mild hyperinflation. No pneumothorax or sizable effusion. The heart is normal in size. IMPRESSION: No acute intrathoracic abnormalities.
[2024-05-08] MEDS ORDERED: ASPIRIN 81 MG CHEWABLE TABLET ONE (19:51)
[2024-05-08] MEDS ORDERED: FOLIC ACID 1 MG TABLET ONE (19:51)
[2024-05-08 20:05] LABS: White Blood Cell Scan OK (OK)
[2024-05-08 20:07] LABS: Blood Morphology Comment NOT SEEN (NOT SEEN); Platelet Estimate DECR
--- NOTE | 2024-05-08 20:15 | P.HP ---
Certification for Inpatient Patient admitted to: Observation With expected LOS: <2 Midnights Practitioner: I am a practitioner with admitting privileges, knowledge of patient current condition, hospital course, and medical plan of care. Services: Services provided to patient in accordance with Admission requirements found in Title 42 Section 412.3 of the Code of Federal Regulations Patient History Date of Service: 05/08/24 Reason for admission: dizziness History of Present Illness: 68-year-old male with past medical history of diabetes, hypothyroidism presented to the emergency room with complaints of dizziness since 3:30 PM today. He also reported some nausea but denies vomiting. Reported that the room felt like a spinning. Denies any falls head trauma fevers chills r focal weaknes difficulty with speech or swallowing. Neurology was contacted in the emergency room recommended admission and stroke workup Allergies codeine Adverse Reaction (Verified 11/11/15 11:56) Nausea/Vomiting hydrocodone Adverse Reaction (Verified 11/11/15 17:20) Nausea/Vomiting octreotide [From Sandostatin] Adverse Reaction (Verified 11/12/15 19:52) Hives/Rash ondansetron [From Zofran (as hydrochloride)] Adverse Reaction (Verified 11/12/15 19:52) Hives/Rash Home Medications: Thyroid,Pork [[place] Thyroid] 60 mg PO DAILY 11/11/15 Metformin HCl [Metformin HCl ER] 750 mg PO BID* 10/26/21 Benzonatate 200 mg PO Q8H PRN 5 Days #15 capsule 10/27/21 Oseltamivir [Tamiflu*] 75 mg PO BID 4 Days #8 cap 10/27/21 - Past Medical/Surgical History Diabetic: Yes -: Hep C -: Thyroid Disorder -: Type 2 Diabetes- Non Insulin Dependent -: Cirrhosis -: TIPS Psychosocial/ Personal History: Patient lives at home with his . - Family History Father -: Heart disease, Diabetes Mother -: Heart disease, Hypertension - Social History Alcohol use: No CD- Drugs: No Caffeine use: Yes Review of Systems 10-point ROS is otherwise unremarkable Gastrointestinal: Nausea Physical Examination - Physical Exam General: Alert, In no apparent distress, Oriented x3 HEENT: Atraumatic, Normocephalic Respiratory: Clear to auscultation bilaterally, Normal air movement Cardiovascular: No edema, Normal pulses, Regular rate/rhythm Gastrointestinal: Normal bowel sounds, Soft and benign Integumentary: No rashes Neurological: Normal speech, Normal strength at 5/5 x4 extr, Sensation intact, Cranial nerves 3-12 intact - Studies Laboratory Data (last 24 hrs) 05/08/24 05/08/24 05/08/24 18:41 18:41 18:41 WBC 2.90 L Hgb 12.5 L Hct 35.8 L Plt Count 65 L PT 13.5 H INR 1.21 APTT 33.1 Sodium 136 Potassium 3.9 BUN 8 Creatinine 0.55 L Glucose 180 H Magnesium 1.6 Assessment and Plan - Problems (Diagnosis) (1) Dizziness Current Visit: Yes Status: Acute - Plan 68-year-old male with past medical history of diabetes, hypothyroidism presented to the emergency room with complaints of dizziness #dizziness #NIDDM #hypothyroidism Plan: 1. admit observation with telemetry 2. MRI brain, ECHO, FLP, AIC 3. continue ASA, statin, permissive HTN 4. PT OT ST 5. Neuro called in ED 6. check TSH 7. FSBS, SSI - Advance Directives Does patient have a Living Will: No Does patient have a Durable POA for Healthcare: No
[2024-05-08] MEDS ORDERED: ONDANSETRON 4 MG/2 ML VIAL IV PRN (20:18)
[2024-05-08] MEDS ORDERED: D10W 125 ML IV PRN (20:18)
[2024-05-08] MEDS ORDERED: ACETAMINOPHEN 500 MG TAB PO PRN (20:18)
[2024-05-08] MEDS ORDERED: GLUCAGON 1 MG/VIAL IM PRN (20:18)
[2024-05-08] MEDS: INSULIN REGULAR (HUMAN) 100 UNIT/ML SQ SCH (21:00)
[2024-05-08 22:02] LABS: Thyroid Stimulating Hormone < 0.005 uIU/mL (0.358-3.740)
[2024-05-08 22:21] VITALS: BMI 22.0
[2024-05-08] MEDS: ATORVASTATIN 20 MG TAB PO SCH (22:31)
[2024-05-08] MEDS: NA CHLORIDE 0.9% 1,000 ML IV SCH (22:33)
[2024-05-08 22:39] VITALS: O2SAT 99
[2024-05-08 23:27] LABS: Specific Gravity > 1.030 (1.005-1.030); Sqamous Epithelial <5 /HPF (None Seen); Urine Bacteria None Seen /HPF (<20); Urine Bilirubin NEGATIVE (Negative); Urine Blood Trace (Negative); Urine Clarity Clear (Clear); Urine Color Yellow (Yellow); Urine Culture Reflex Order NOT NEEDED; Urine Glucose 3+ (Negative); Urine Ketones 1+ (Negative); Urine Microscopic Reflex YN ORDER UMIC; Urine Mucus Slight /HPF (None Seen); Urine Nitrite NEGATIVE (Negative); Urine Protein TRACE (Negative); Urine RBC None Seen /HPF (None Seen); Urine Urobilinogen 1+ (Normal); Urine WBC <5 /HPF (<5)
[2024-05-09 05:27] LABS: Absolute Eosinophils 0.1 K/uL (0-0.5); Absolute Lymphocytes (CBC) 1.1 K/uL (0.7-4.9); Absolute Monocytes 0.3 K/uL (0.1-1.3); Absolute Neutrophil 1.6 K/uL (1.8-8.0); Basophils % 0.7 % (0-1.3); Eosinophils % 2.6 % (0-4.4); Hematocrit 35.3 % (39.6-49.0); Lymphocytes % 35.7 % (15.3-44.8); MCH 35.1 pg (27.0-35.0); MCHC 34.2 g/dL (32.0-36.0); MCV 102.9 fL (80-100); MPV 9.3 fL (7.6-11.3); Monocytes % 9.2 % (3.3-12.3); Neutrophils % 51.8 % (41.7-73.7); Platelets 60 thou/uL (152-406); RBC Red Blood Cell Count 3.43 M/uL (4.33-5.43); Red Cell Distribution Width 13.9 % (12.1-15.2)
[2024-05-09 05:37] LABS: Albumin 2.9 g/dL (3.4-5.0); Albumin/Globulin Ratio 1.1 (1.1-1.8); Anion Gap 9.8 mEq/L (5.0-15.0); Bilirubin Total 1.5 mg/dL (0.2-1.0); Globulin 2.7 g/dL (2.3-3.5); Potassium 3.8 mEq/L (3.5-5.1); Protein, Total 5.6 g/dL (6.4-8.2)
--- NOTE | 2024-05-09 07:56 | P.PN ---
Date of Service: 05/09/24 subjective Presented with nausea and dizziness, neurology consulted for stroke eval Review of Systems 10-point ROS is otherwise unremarkable Physical Examination - Physical Exam Vital signs Reviewed General: Alert, In no apparent distress, Oriented x3 HEENT: Atraumatic, Normocephalic Respiratory: Clear to auscultation bilaterally, Normal air movement Cardiovascular: No edema, Normal pulses, Regular rate/rhythm Gastrointestinal: Normal bowel sounds, Soft and benign Integumentary: No rashes Neurological: Normal speech, Normal strength at 5/5 x4 extr, Sensation intact, Cranial nerves 3-12 intact Assessment and Plan - Problems (Diagnosis) Dizziness Neurology consult, fall precautions MRI of the right knee, echo ordered continue ASA, statin, permissive HTN PT OT ST NIH stroke scale Nausea As needed antiemetics - Plan 68-year-old male with past medical history of diabetes, hypothyroidism presented to the emergency room with complaints of dizziness NIDDM Accu-Cheks, sliding scale insulin hypothyroidism Resume appropriate home meds TSH 1.97 Follow-up with PCP after discharge Full code Diet cardiac SCDs Disposition Home pending hospital course - Advance Directives Does patient have a Living Will: No Does patient have a Durable POA for Healthcare: No
[2024-05-09] MEDS ORDERED: LEVOTHYROXINE SOD 0.1 MG TAB PO SCH (08:30)
[2024-05-09] MEDS: LEVOTHYROXINE SOD 0.075 MG TAB PO SCH (08:46)
[2024-05-09] MEDS: ASPIRIN EC 81 MG TAB PO SCH (08:46)
[2024-05-09 08:49] VITALS: TEMP 98
--- NOTE | 2024-05-09 10:06 | RAD REPORT ---
EXAMINATION: MRI BRAIN WITHOUT AND WITH CONTRAST CLINICAL INDICATION: dizziness, concern for cva TECHNIQUE: Multiplanar multisequence MR images of the brain were obtained without and with intravenou s contrast. Unless otherwise specified, incidental findings do not require dedicated imaging follow-up. COMPARISON: CT imaging 05/08/2024 FINDINGS: INTRACRANIAL: Diffusion-weighted images show no acute or early subacute infarction. There is moderate brain atrophy with moderateT2/FLAIR hyperintensities in the periventricular and deep white matter regions, likely representing chronic microvascular ischemic changes. There is no mass effect or midli ne shift. No abnormal extraaxial fluid collection. VASCULATURE: Normal signal voids in the larger intracranial arteries and dural venous sinuses. SINUSES: The paranasal sinuses and mastoid air cells are predominantly clear. BONE: The marrow signal pattern is within normal limits. CONTRAST: No pathologic postcontrast enhancement to indicate tumor or infection. OTHER FINDINGS: IMPRESSION: Negative for acute CVA or other acute intracranial process.
[2024-05-09 12:06] VITALS: BP 142/76
--- NOTE | 2024-05-09 14:20 | P.DS ---
Admission Date: 05/08/24 Discharge Date: 05/09/24 Disposition: ROUTINE DISCHARGE Discharge Condition: FAIR Reason for Admission: dizziness - Problems (1) Dizziness Current Visit: Yes Status: Acute (2) Hyperthyroidism determined by thyroid function test Current Visit: Yes Status: Acute (3) History of hypothyroidism Current Visit: Yes Status: Acute (4) Pancytopenia Current Visit: Yes Status: Acute Brief History of Present Illness: 68-year-old male with past medical history of diabetes, hypothyroidism presented to the emergency room with complaints of vertigo of 1 day duration, associated with nausea but denies vomiting. He describes the vertigo as the room spinning, no tinnitus, no hearing impairment. He denie any fall or head trauma, he denied any fevers or chills or focal weaknes or difficulty with speech or swallowing. He denied any prior upper respiratory symptoms. Evaluation in the ER with head CT did not show any acute disease. Neurology was contacted in the emergency room who recommended admission and stroke workup. Hospital Course: Patient was placed under observation on the medical floor and patient evaluated for acute CVA with MRI which was negative. Echocardiogram done, CTA head and neck were also unremarkable. Acute CVA ruled out. Blood work showed markedly low TSH and high free T4 indicating hyperthyroid state. Patient has dizziness and vertigo symptoms most likely related to hyperthyroidism. Her Synthroid dose is decreased from 175 mcg to 100 mcg daily on discharge. Lipid profile checked showed LDL below target. Patient noted to have pancytopenia with leukopenia and thrombocytopenia. Lovenox for DVT prophylaxis not given due to thrombocytopenia. Patient had no problems swallowing or speech problems, he also had no focal weakness or difficulty ambulating so patient did not require rehab evaluation and services. Vital Signs/Physical Exam: Temp Pulse Resp BP Pulse Ox 98.0 F 76 16 142/76 H 98 05/09/24 12:00 05/09/24 12:00 05/09/24 12:00 05/09/24 12:00 05/09/24 12:00 General: Alert, In no apparent distress, Oriented x3 HEENT: Mucous membr. moist/pink, EOMI, Sclerae nonicteric Neck: Supple, JVD not distended Respiratory: Clear to auscultation bilaterally, Normal air movement Cardiovascular: No edema, Regular rate/rhythm, Normal S1 S2, No murmurs Gastrointestinal: Normal bowel sounds, Soft and benign, Non-distended, No tenderness Musculoskeletal: No swelling, No tenderness Integumentary: No rashes, No cyanosis Neurological: Normal speech, Normal strength at 5/5 x4 extr, Cranial nerves 3-12 intact Laboratory Data at Discharge: WBC 3.00 thou/uL (4.3-10.9) L 05/09/24 05:04 Hgb 12.0 g/dL (13.6-17.9) L 05/09/24 05:04 Hct 35.3 % (39.6-49.0) L 05/09/24 05:04 Plt Count 60 thou/uL (152-406) L 05/09/24 05:04 PT 13.5 SECONDS (9.4-12.5) H 05/08/24 18:41 INR 1.21 05/08/24 18:41 APTT 33.1 SECONDS (24.3-36.9) 05/08/24 18:41 Sodium 141 mEq/L (136-145) D 05/09/24 05:04 Potassium 3.8 mEq/L (3.5-5.1) 05/09/24 05:04 BUN 6 mg/dL (7-18) L 05/09/24 05:04 Creatinine 0.46 mg/dL (0.70-1.30) L 05/09/24 05:04 Glucose 127 mg/dL (74-106) H 05/09/24 05:04 Magnesium 1.6 mg/dL (1.6-2.4) 05/08/24 18:41 Total Bilirubin 1.5 mg/dL (0.2-1.0) H 05/09/24 05:04 AST 23 U/L (15-37) 05/09/24 05:04 ALT 36 U/L (16-61) 05/09/24 05:04 Alkaline Phosphatase 111 U/L (45-117) 05/09/24 05:04 Triglycerides 65 mg/dL (<150) 05/09/24 05:04 Cholesterol 156 mg/dL (<200) 05/09/24 05:04 HDL Cholesterol 90 mg/dL (40-60) H 05/09/24 05:04 Cholesterol/HDL Ratio 1.73 05/09/24 05:04 Home Medications: Hydrocodone/Acetaminophen [Hydrocodone-Acetamin 10-325 mg] 1 each PO Q8HP PRN 05/08/24 Metformin ER [Glucophage ER*] 1,000 mg PO BID 05/08/24 Aspirin [Aspirin EC 81 MG] 81 mg PO DAILY #30 tab 05/09/24 Levothyroxine [Synthroid*] 100 mcg PO [id number] #30 tab 05/09/24 New Medications: Aspirin [Aspirin EC 81 MG] 81 mg PO DAILY #30 tab Levothyroxine [Synthroid*] 100 mcg PO [id number] #30 tab Followup: Edin Arguello MD [Primary Care Provider] - 1-2 Weeks Time spent managing pt's care (in minutes): 27
--- NOTE | 2024-05-09 14:29 | ECHO ---
HEIGHT: 5 ft 10 in WEIGHT: 153 lb 8 oz DATE OF STUDY: 05/09/[address]: Gabriela Hein MD 2-DIMENSIONAL: YES M.MODE: YES DOPPLER: YES COLOR FLOW: YES TDS: PORTABLE: YES DEFINITY: BUBBLE STUDY: DIAGNOSIS: STROKE CARDIAC HISTORY: CATHERIZATION: NO SURGERY: NO PROSTHETIC VALVE: NO PACEMAKER: NO MEASUREMENTS (cm) DIASTOLIC (NORMALS) SYSTOLIC (NORMALS) IVSd 1.1 (0.6-1.2) LA Diam 3.1 (1.9-4.0) LVEF 60-65% LVIDd 4.3 (3.5-5.7) LVIDs 2.7 (2.0-3.5) %FS 37% LVPWd 1.1 (0.6-1.2) Ao Diam 3.0 (2.0-3.7) 2 DIMENSIONAL ASSESSMENT: RIGHT ATRIUM: NORMAL LEFT ATRIUM: NORMAL RIGHT VENTRICLE: NORMAL LEFT VENTRICLE: NORMAL TRICUSPID VALVE: TRACE TRICUSPID REGURGITATION MITRAL VALVE: TRACE MITRAL REGURGITATION PULMONIC VALVE: NORMAL AORTIC VALVE: TRACE AORTIC REGURGITATION PERICARDIAL EFFUSION: NONE AORTIC ROOT: NORMAL LEFT VENTRICULAR WALL MOTION: NORMAL DOPPLER/COLOR FLOW: NORMAL COMMENTS: 1. NORMAL LEFT VENTRICULAR SYSTOLIC FUNCTION, EJECTION FRACTION 60-65%, NORMAL WALL MOTION 2. NORMAL DIASTOLIC FUNCTION TECHNOLOGIST: KAITLYNN LU
[2024-05-09] MEDS ORDERED: FLU (Fluarix Triv) TS24-25(6MOS UP)/PF 45 MCG/0.5 ML Syringe IM ONE (15:00)
[2024-05-09] MEDS ORDERED: ENOXAPARIN 40 MG/0.4 ML SQ SCH (17:00)
--- NOTE | 2024-05-10 16:57 | EKG ---
Test Date: 2024-05-08 Test Time: 18:50:05 [employer] Day Worker: AFSHIN MEASUREMENT RESULTS: Intervals: Rate: 86 HI: 180 QRSD: 94 QT: 402 QTc: 481 [place]: P: 44 HI: 180 QRS: -33 T: 73 INTERPRETIVE STATEMENTS: Normal sinus rhythm Left axis deviation Left ventricular hypertrophy with repolarization abnormality Prolonged QT Abnormal ECG Compared to ECG 05/08/2024 18:43:03 Left-axis deviation now present Left ventricular hypertrophy now present Early repolarization now present Prolonged QT interval now present Electronically Signed On 05-10-24 16:51:39 CDT by Bo Bell
--- NOTE | 2024-05-10 16:58 | EKG ---
Test Date: 2024-05-08 Test Time: 18:43:03 Case Supervisor: AFSHIN MEASUREMENT RESULTS: Intervals: Rate: 0 ME: QRSD: 0 QT: 0 QTc: 0 [place]: P: ME: QRS: 0 T: 0 INTERPRETIVE STATEMENTS: No QRS complexes found, no ECG analysis possible Compared to ECG 10/25/2021 22:09:13 Sinus rhythm no longer present Left ventricular hypertrophy no longer present ST (T wave) deviation no longer present Electronically Signed On 05-10-24 16:51:42 CDT by Bo Bell
== END 2024-05-09 14:55 | disposition home or self-care (01) ==
LOC: ER 17:54 → 2ND 20:18
PROVIDERS: ADMIT Nurse Practitioner; ATTEND Internal Medicine
DX: E05.90 Thyrotoxicosis, unspecified without thyrotoxic crisis or storm (principal); D61.818 Other pancytopenia; E11.9 Type 2 diabetes mellitus without complications; R11.0 Nausea; Z88.5 Allergy status to narcotic agent
CPT/HCPCS: 93005 ×2; 93306; 85025 ×2; 81001; 80048; 36415 ×2; 83735; 85610; 80061; 82565; 82947 ×4; 85730; 84443; 83036; 84484; 84439; 80053; 70496; 70498; 70450; 71045; 70553; 92610; 99285; Q9967; A9577; J8597; J7030; G0378 ×3